=== PATIENT | female | born 2000 | race Caucasian/White ===

== ENCOUNTER 2024-08-02 18:01 | Emergency (ER) | payer BC, MEDICAID, SELFPAY ==
--- NOTE | ~2024-08-02 | XR_ITS ---
CHEST RADIOGRAPH, PA AND LATERAL CLINICAL HISTORY: influenza a, persistent cough . COMPARISON: None available TECHNIQUE: PA and lateral views of the chest. FINDINGS The cardiomediastinal silhouette is unremarkable. The lungs are clear. Visualized osseous structures and soft tissues are unremarkable. IMPRESSION: No focal infiltrate or effusion. Reviewed, dictated and finalized at location A. NG SECRETARY
[2024-08-02 18:10] VITALS: BP 146/81; PULSE 75; RESP 16; TEMP 36.5; O2SAT 100
--- NOTE | 2024-08-02 18:45 | ED_ITS ---
HPI - URI/Sore Throat General Chief Complaint: Upper Respiratory Infection <PEPE Andrade Last Filed: 08/02/24 19:12> Stated Complaint: flu symptoms <PEPE Andrade Last Filed: 08/02/24 19:12> Time Seen by Provider: 08/02/24 18:45 <PEPE Andrade Last Filed: 08/02/24 19:12> Focused HPI: Patient is a 24-year-old female who presents the ED with report of a cough. Patient reports she tested positive for Influenza A last . Has been taking eldeberry, honey, mucinex, Tylenol, Ibuprofen at home w/o improvement. Reports very occasional SOB, denies TEJEDA. Reports ozzy rib pain with coughing. Denies anterior CP at rest. Has had fevers, but denies any fever today. GENERAL: Mildly ill-appearing, well-nourished, and in no acute distress. HEAD: Normocephalic, atraumatic. CHEST: No respiratory distress. Coarse lung sounds ozzy in bases with occ exp wheezing. Frequent coughing on exam. HEART: Regular rate and rhythm.? NEURO: ?Alert and oriented x3. Patient screened in triage and initial orders placed.? ?Additional care and disposition to be based upon?diagnostic testing and treatment. <PEPE Andrade Last Filed: 08/02/24 19:12> Source: patient <PEPE Andrade Last Filed: 08/02/24 19:12> Mode of arrival: ambulatory <PEPE Andrade Last Filed: 08/02/24 19:12> Limitations: no limitations <PEPE Andrade Last Filed: 08/02/24 19:12> Related Data Allergies/Adverse Reactions: Allergies Allergy/AdvReac Type Severity Reaction Status Date / Time ampicillin Allergy Intermediate Hives Verified 08/02/24 20:56 Penicillins Allergy Intermediate Hives Verified 08/02/24 20:57 Sulfa (Sulfonamide AdvReac Swelling Verified 08/02/24 20:57 Antibiotics) <PEPE Andrade Filed: 08/02/24 19:12> Review of Systems Review of Systems: All systems reviewed & are unremarkable except as noted in HPI and below <Elsie LRachelle Del Cid APRN - Last Filed: 08/02/24 22:27> Exam Narrative: GENERAL: Well appearing, well-nourished, non-toxic, in no acute distress. HEAD: Normocephalic, atraumatic. NECK: Supple. No adenopathy, no masses. RESPIRATORY: Airway patent, respirations nonlabored. L lower lobe coarse and crackles, no rales, rhonchi, wheezing. CARDIOVASCULAR: Regular rate and rhythm without murmurs, rubs, or gallops. Per ipheral pulses 2+ and equal bilaterally. ABDOMINAL: Soft, nontender, nondistended, no hepatosplenomegaly. Normoactive BS. MUSCULOSKELETAL: Moves all extremities. Strength/ROM intact without gross def ormities. SKIN: Warm, dry, normal color. No rashes. NEURO: A&O X3. Speech clear. Cranial nerves II-XII grossly intact. Steady gait. No ataxic movements. PSYCHIATRIC: Appropriate mood and affect. Normal interaction. <Elsie Cline Maria Eugenia, ERIC - Last Filed: 08/02/24 22:27> Course Vital Signs Vital signs: Vital Signs Temperature 36.5 C 08/02/24 18:10 Pulse Rate 75 08/02/24 18:10 Respiratory Rate 16 08/02/24 18:10 Blood Pressure 146/81 H 08/02/24 18:10 Pulse Oximetry 100 08/02/24 18:10 Oxygen Delivery Room Air 08/02/24 18:10 Temperature 36.5 C 08/02/24 18:10 Pulse Rate 84 08/02/24 21:57 Respiratory Rate 16 08/02/24 21:57 Blood Pressure 144/83 H 08/02/24 20:12 Pulse Oximetry 100 08/02/24 20:12 Oxygen Delivery Room Air 08/02/24 18:10 <Jodi Armenta PA-C - Last Filed: 08/02/24 19:12> Vital Signs Temperature 36.5 C 08/02/24 18:10 Pulse Rate 75 08/02/24 18:10 Respiratory Rate 16 08/02/24 18:10 Blood Pressure 146/81 H 08/02/24 18:10 Pulse Oximetry 100 08/02/24 18:10 Oxygen Delivery Room Air 08/02/24 18:10 Temperature 36.5 C 08/02/24 18:10 Pulse Rate 84 08/02/24 21:57 Respiratory Rate 16 08/02/24 21:57 Blood Pressure 144/83 H 08/02/24 20:12 Pulse Oximetry 100 08/02/24 20:12 Oxygen Delivery Room Air 08/02/24 18:10 <Elsie Del Cid, ERIC - Last Filed: 08/02/24 22:27> MDM - URI/Sore Throat MDM Narrative Medical decision making narrative: MSE by ANIRUDH in triage. <Jodi Armenta PA-C - Last Filed: 08/02/24 19:12> MSE by ANIRUDH in triage. Patient is a 24-year-old female who presents the ED with report of a cough. Patient reports she tested positive for Influenza A last . Has been taking eldeberry, honey, mucinex, Tylenol, Ibuprofen at home w/o improvement. Reports very occasional SOB, denies TEJEDA. Reports ozzy rib pain with coughing. Denies anterior CP at rest. Has had fevers, but denies any fever today. Labs Ordered: None necessary Imaging Ordered: Chest x-ray Medications Ordered: Prednisone, Toradol, DuoNeb Results: Patient's chest x-ray indicates The cardiomediastinal silhouette is unremarkable. The lungs are clear. Visualized osseous structures and soft tissues are unremarkable. Diagnosis: Upper respiratory infection, influenza A, community-acquired pneumonia Patient Education/Shared MDM: Results shared with patient. She endorses improvement following medication administration. Patient strongly advised to maintain hydration status upon discharge and follow-up with her PCP. She will be discharged home with prescription for Tessalon Perles and Prednisone. After discussion between [employer] and pt, it was decided pt would be treated for atypical pneumonia d/t her coarse lung sounds. Strict return precautions provided. Patient verbalized understanding is in agreement with plan. Vital signs stable at time of discharge. All questions answered. <Elsie Del Cid APRN - Last Filed: 08/02/24 22:27> Differential Diagnosis Differential diagnosis: Likely upper respiratory infection, viral infection, bronchitis and influenza <Elsie Del Cid APRN - Last Filed: 08/02/24 22:27> Imaging Data Attestation: I personally reviewed and interpreted this imaging study as follows: <Elsie Del Cid APRN - Last Filed: 08/02/24 22:27> Radiologist's impression: Impressions Chest X-Ray 08/02/24 19:03 IMPRESSION: No focal infiltrate or effusion. <Elsie Del Cid APRN - Last Filed: 08/02/24 22:27> Discharge Plan Discharge Clinical Impression: Upper respiratory infection, Community acquired pneumonia <Jodi Armenta PA-C - Last Filed: 08/02/24 19:12> Patient Disposition: Home, Self-Care <PEPE Andrade Last Filed: 08/02/24 19:12> Condition: Stable <PEPE Andrade Last Filed: 08/02/24 19:12> Instructions: Antibiotic Form, Influenza (ED), Community Acquired Pneumonia (ED) <PEPE Andrade Last Filed: 08/02/24 19:12> Additional Instructions: Please return to the ER with an worsening symptoms. Follow-up with primary care provider in the next 2-3 days. Take all medications as prescribed. Complete your full dose of antibiotics. <PEPE Andrade Last Filed: 08/02/24 19:12> Patient Language: [place] Islander <PEPE Andrade Last Filed: 08/02/24 19:12> Prescriptions: New methylprednisolone [Medrol (Abdiaziz)] 4 mg tablets,dose pack See Rx Instructions .ROUTE .COMPLEX Qty: 21 0RF Rx Instructions: for 6 days methylprednisolone [Medrol (Abdiaziz)] 4 mg tablets,dose pack See Rx Instructions .ROUTE .COMPLEX Qty: 21 0RF Rx Instructions: for 6 days benzonatate 100 mg capsule 100 mg PO TID Qty: 21 0RF albuterol sulfate [Ventolin HFA] 90 mcg/actuation HFA aerosol inhaler 1 puff inhalation QID PRN (Reason: shortness of breath or wheezing) Qty: 8.5 0RF azithromycin 250 mg tablet See Rx Instructions .ROUTE .COMPLEX Qty: 6 0RF Rx Instructions: For 250 mg dose pack: take 500 mg today (day 1), then 250 mg for 4 days (days 2-5) <Jodi Armenta PA-C - Last Filed: 08/02/24 19:12> Follow-up/Referrals: PHYSICIAN NOT ON STAFF,NONSTAFF [Non-Staff] - <Jodi Armenta PA-C - Last Filed: 08/02/24 19:12> Time of Disposition: 22:27 <Jodi Armenta PA-C - Last Filed: 08/02/24 19:12> 22:27 <Elsie Del Cid APRN - Last Filed: 08/02/24 22:27>
[2024-08-02 20:12] VITALS: BP 144/83; PULSE 73; RESP 15; O2SAT 100
--- OUTSIDE RECORDS SUMMARY | 2024-08-02 21:01 | XMS_ITS | Encounter Summary ---
Author Organization [facility] Address [facility]ly [facility] [place] [address] Care Team Providers Care Business Information Manager Name Role Phone None, Provider Primary Care Provider Nanette Cedeño MD Primary Care Provider [phone] Heather Willams DO Primary Care Provider [phone] Lane Lazcano CNM Unavailable [phone] Matty Pugh NP Primary Care Provider [phone] Reason for Visit * Reason Onset Date Comments Post-hospital Follow-up 05/09/2019 Encounter Details Date Type Department Care Team (Late st Contact Info) Description 05/09/2019 Hospital Follow-up Call [facility] [place] [address] Carley Boggs RN Post-hospital Follow-up Social History Tobacco Use Types Packs/Day Years Used Date Smoking Tobacco: Never Smokeless Tobacco: Never Alcohol Use Standard Drinks/Week Comments No 0 (1 standard drink = 0.6 oz pur e alcohol) Humiliation, Afraid, Rape, and Kick questionnair e Answer Date Recorded Fear of Current or Ex-Partner No Emotionally Abused No 02/25/2019 Physically Abused No 02/25/2019 Sexually Abused No 02/25/2019 Social Connection and Isolat ion Panel [NHANES] Answer Date Recorded Frequency of Communication w ith Friends and Family More than three times a week 02/25/2019 Frequency of Social Gatherin gs with Friends and Family Three times a week 02/25/2019 Attends Hoahaoism Services Never 02/25 Active Member of Clubs or Organizations Yes 02/25/2019 Attends Club or Organization Meetings More than 4 times per year 02/25/2019 Marital Status 02/25/2019 AUDIT-C Answer Date Recorded Frequency of Alcohol Consumption Never 09/15/2018 Average Number of Drinks Not on file 019 Frequency of Binge Drinking Not on file 08/21 Overall Financial Resource Strain (CARDIA) Answe r Date Recorded Difficulty of Paying Living Expenses Not hard at all 02/25/2019 [facility] - Occupational Stress Questionnaire Answer Date Recorded Feeling of Stress Not at all 02/25/2019 Exercise Vital Sign Answer Date Recorde d Days of Exercise per Week 7 days 2018 Minutes of Exercise per Session 150+ min 02/25/2019 Hunger Vital Sign Answer Date Recorded Worried About Running Out of Food in the Last Ye ar Never true 02/25/2019 Ran Out of Food in the Last Year Never true 02/25/2019 PRAPARE - Transportation Answer Date Re corded Lack of Transportation (Medical) No 02/25/2019 Lack of Transportation (Non-Medical) No 02/25/2019 Education Answer Date Recorded What is the highest level of school you have completed or the highest degree you have received? High school graduate 02/25/2019 Comments No Sex and Gender Information Value Date Recorded Sex Assigned at Not on file Legal Sex Female 7:46 PM CDT Gender Identity Not on file Sexual Orientation Not on file Occupation Industry Job Start Date Job End Date none Not on file Not on file Not on file documented as of this encounter Functional Status * RETIRED Are you deaf or do you have serious difficulty hearing Answer Date of Assessment Author Status No 05/04/2019 12:27 PM CLIENT SERVICES ASSOCIATE Acti ve * RETIRED Are you blind or do you have serious difficulty seeing, even when wearing glasses? Answer Date of Assessment Author Status No 05/04/2019 12:27 PM CLIENT SERVICES ASSOCIATE Acti ve * Do you have serious difficulty walking or climbing stairs? Answer Date of Assessment Author Status No 05/04/2019 12:27 PM Erin Diana RN Active * Do you have difficulty dressing or bathing? Answer Date of Assessment Author Status No 05/04/2019 12:27 PM Erin Diana RN Active * Because of a physical, mental, or emotional condition, do you have difficulty doing errands alone such as visiting a doctor's office or shopping? Answer Date of Assessment Author Status No 05/04/2019 12:27 PM Erin Diana RN Active documented as of this encounter Mental Status * Because of a physical, mental, or emotional condition, do you have serious difficulty concentrating, remembering, or making decisions? Answer Entry Date Author Status No 05/04/2019 12:27 PM Erin Diana RN Active documented in this encounter Plan of Treatment Not on file documented as of this encounter Visit Diagnoses Not on filedocumented in this encounter Additional Health Concerns Infection Onset Date Last Indicated Resolved Time COVID-19 Rule Out 06/21/2021 06/21/2021 06/21/2021 10:20 PM CLIENT SERVICES ASSOCIATE COVID-19 Rule Out 02/14/2024 02/14/2024 02/14/2024 6:47 PM CDT documented as of this encounter Care Teams Business Information Manager Relationship Specialty Start Date End Date None, Provider, PCP - General 09/15/18 11/07/19 Nanette Sharma MD [address] [address] PCP - General FAMILY PRACTICE 11/08/19 12/27/19 Heather Willams DO [address] [phone] PCP - General FAMILY PRACTICE 12/28/19 06/25/23 Matty Pugh, ZAHIRA [address] [place] [phone] PCP - General FAMILY PRACTICE 06/26/23 Lane Lazcano CNM 3 [facility] [address] [place] [phone] ADVANCED PRACTICE WATER TAXI OPERATOR 05/01/21 documented as of this encounter
--- OUTSIDE RECORDS SUMMARY | 2024-08-02 21:01 | XMS_ITS | Clinical Summary ---
Author Organization [facility] Address [address] [place] [address] Care Team Providers Care Theatre Director Name Role Phone No, Physician Primary Care Provider [phone] Melina Forrester MD Unavailable [phone] Allergies Active Allergy Reactions Criticality Noted Date Comments Penicillin Anaphylaxis High 04/06/2024 Sulfa (Sulfonamide Antibiotics) Hives Medium 03/22 Medications famotidine (PEPCID) 20 mg tablet Take 1 tablet (20 mg total) by mouth 2 (two) times a day as needed for heartburn Active [id number] 25 mg iron-1 mg -400 mg combo pack Take 1 tablet by mouth daily Active Active Problems Problem Noted Date Diagnosed Date Normal labor 04/06/2024 Social History Tobacco Use Types Packs/Day Years Used Date Smoking Tobacco: Never Passive Smoke Exposure: Never Smokeless Tobacco: Never Tobacco Cessation:Counseling Given: No [place] Depression Scale Answer Date Recorded [place] Depression Scale Total 8 04/08/2024 The thought of harming myself has occurred to me . Never 04/08/2024 Personal Safety Answer Date Recorded Have you ever been in or are you currently in a harmful physical or emotional relationship or is someone making you feel afraid or unsafe? 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 Gender Identity Not on file Sexual Orientation Not on file Obstetrics History Para Term AB IAB SAB Ectopic Multiple Livin g Live Births 4 3 3 1 0 3 3 Date Outcome GA Total Labor Labor/2nd/3rd Weight Sex Type Anes PTL Niki A1 A5 Name Clin AB 2018 Term Vagina l Livin g 2021 Term 38w 0d Vagina l Livin g 2023 Term 38w 6d 4h 20m 3h 57m/0h 18m/0h 05m 2.95 kg (6 lb 8.1 oz) M Vagina l Epidur al Y Livin g 8 9 Eliecer Ray Tae Shine, Nataliia Mccormack MD Complications:None Delivery Location:[facility] Main C ampus ([facility]) Last Filed Vital Signs Vital Sign Reading Time Taken Comments Blood Pressure 116/58 04/08/2024 6:09 AM CDT Pulse 60 04/08/2024 6:09 AM CDT Temperature 36.7 C (98.1 F) 04/08/2024 6:09 AM CDT Respiratory Rate 16 04/08/2024 6:09 AM CDT Oxygen Saturation 98% 04/08/2024 6:09 AM CDT Inhaled Oxygen Concentration - - Weight 67.1 kg (148 lb) 04/07/2024 9:50 PM CDT Height 157.5 cm (5' 2 ) 04/07/2024 9:50 PM CDT Body Mass Index 27.07 04/07/2024 9:50 PM CDT Plan of Treatment Health Maintenance Due Date Last Done Comments Cervical Cancer Screening 1998 Hepatitis C Screening 1998 Varicella Vaccines (2 of 2 - 2-dose childhood series) 2002 03/02/2002 HPV Vaccines (1 - 3-dose series) 2013 Regular Well Visit/Exam 18-64 2016 Influenza Vaccine (#1) 2024 05/06/2019 Depression Screening 04/08/2025 04/08/2024 DTaP/Tdap/Td Vaccine (8 - Td or Tdap) 05/07/2031 05/07/2021, 09/24/2020, 05/05/2019, Additional history exists Pneumococcal vaccine <65 Aged Out No longer eligible based on patient's age to complete this topic Insurance [facility]S [facility] Address: [address] [place] [address] [employer] [facility] O[facility] IDPA Advance Directives For more information, please contact: [phone] * Full Code (Latest Code Status on File) Date Activated Date Inactivated Comments 04/07/2024 5:32 AM 04/08/2024 3:57 PM * Full Code Date Activated Date Inactivated Comments 04/06/2024 7:03 PM 04/07/2024 5:32 AM Care Teams Theatre Director Relationship Specialty Start Date End Date No, Physician PCP - General 08/20/20 Melina Forrester MD [address] [place] [address] Consulting Physician Obstetrics and Gynecology 04/08/24
--- OUTSIDE RECORDS SUMMARY | 2024-08-02 21:01 | XMS_ITS | Referral Summary ---
Author Organization [facility] Address [address] [place] [address] Care Team Providers Care Commissions Specialist Name Role Phone No, Physician Primary Care Provider [phone] Melina Forrester MD Unavailable [phone] Allergies Active Allergy Reactions Criticality Noted Date Comments Penicillin Anaphylaxis High 04/06/2024 Sulfa (Sulfonamide Antibiotics) Hives Medium 03/22 Medications famotidine (PEPCID) 20 mg tablet Take 1 tablet (20 mg total) by mouth 2 (two) times a day as needed for heartburn Active [id number] 25 mg iron-1 mg -400 mg combo pack Take 1 tablet by mouth daily Active Active Problems Problem Noted Date Diagnosed Date Normal labor 04/06/2024 Social History Tobacco Use Types Packs/Day Years Used Date Smoking Tobacco: Never Passive Smoke Exposure: Never Smokeless Tobacco: Never Tobacco Cessation:Counseling Given: No [place] Depression Scale Answer Date Recorded [place] Depression Scale Total 8 04/08/2024 The thought [...] on file Legal Sex Female 8:52 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 CLAIMS [employer] OOS Member Subscriber Plan / Payer (Ef fective 2023-Present) Name:Elly Clarke Relation to Subscriber:Spouse Name:Todd Clarke Date of :1995 Address: [place] [address] Payer ID:[id number] (NAIC) Type:[facility] Address: [address] [place] [id number] IDPA Advance Directives For more information, please contact: [phone] * Full Code (Latest Code Status on File) Date Activated Date Inactivated Comments 04/07/2024 5:32 AM 04/08/2024 3:57 PM * Full Code Date Activated Date Inactivated Comments 04/06/2024 7:03 PM 04/07/2024 5:32 AM Care Teams Commissions Specialist Relationship Specialty Start Date End Date No, Physician PCP - General 08/20/20 Melina Forrester MD [address] [place] [address] Consulting Physician Obstetrics and Gynecology 04/08/24
--- OUTSIDE RECORDS SUMMARY | 2024-08-02 21:01 | XMS_ITS | Clinical Summary ---
Author Organization [facility] Address [address] [place] [address] Care Team Providers Care Cte Teacher Name Role Phone Lane Lazcano CNM Unavailable [phone] Matty Pugh IMAGE EDITOR Primary Care Provider + [phone] Allergies Active Allergy Reactions Criticality Noted Date Comments Ampicillin Chest pressure 09/15/2018 Penicillin V Chest pressure 09/15/2018 Penicillins Unknown 01/19/2019 Sertraline Palpitations Medium 07/18/2022 Sulfa Antibiotics Hives 09/15/2018 Medications vitamin D2, ergocalciferol, (DRISDOL) 1.25 mg capsule Take 1 capsule (1.25 mg total) by mouth every 7 days. 07/01/19 24 Active vitamin with iron ( PLUS) 27-1 MG Tab Take 1 tablet by mouth daily. Active hydrOXYzine (VISTARIL) 25 MG capsule Take 1-2 capsules (25-50 mg total) by mouth 4 (four) times daily as needed for Itching or Anxiety (insomnia, nausea or pain). May substitute tabs and or any form of hydroxyzine 30 capsule 2 03/17/20 24 Active ondansetron (ZOFRAN-ODT) 8 MG disintegrating tablet Take 1 tablet (8 mg total) by mouth every 8 (eight) hours as needed for Nausea. 20 tablet 2 03/17/20 24 Active sucralfate (CARAFATE) 1 G tablet Take 1 tablet (1 g total) by mouth 4 (four) times daily. Please take 30-60 minutes before meal and bedtime. After 5 days may take this medicine 2-4 times a day as needed 60 tablet 2 03/17/20 24 Active famotidine (PEPCID) 20 MG tablet Take 2 tablets (40 mg total) by mouth 2 (two) times daily. 60 tablet 1 03/17/20 24 Active Active Problems Problem Noted Date Diagnosed Date Labor, prolonged latent phase ([facility]) 03/30/20 24 Uterine contractions during ([facility]) 03/16/2024 Uterine contractions ([facility]) 03/16/2024 Threatened labor ([facility]) 02/21/2024 32 weeks gestation of ([facility]) 2023 Normal in third trimester ([facility]) ([facility]) 04/07/2019 Dizziness Palpitations Murmur Resolved Problems Problem Noted Date Diagnosed Date Resolved Date Delayed delivery after SROM (spontaneous rupture of membranes) ([facility]) 03/29/2024 03/31/20 24 uterine contractions in third trimester, antepartum ([facility]) 04/01/2019 05/04/20 19 uterine contractions , antepartum, third trimester ([facility]) 03/24/2019 05/04/2019 uterine contractions , antepartum, third trimester ([facility]) 03/07/2019 05/04/2019 Immunizations Name Administration Dates Next Due Afluria 36 MONTHS+ (Prefilled Syringe IIV4) 04/22 MMR (MMRII) 07/05/2021,05/06/2019 Tdap (Boostrix) 05/05/2019 Family History Medical History Relation Comments Asthma Brother 3 Hypertension Father CHF Maternal Grandfather [place] Maternal Grandfather Stent Cardiac Maternal Grandfather Stroke Maternal Grandfather Cancer Mother CHF Paternal Grandfather Heart Attack Paternal Grandfather hypothyroidism Sister Relation Status Comments Brother 1 Alive Brother 2 Alive Brother 3 Alive Father Alive Maternal Grandfather Mother Alive Paternal Grandfather Alive Sister Alive Social History Tobacco Use Types Packs/Day Years Used Date Smoking Tobacco: Never Smokeless Tobacco: Never Alcohol Use Standard Drinks/Week Comments No 0 (1 standard drink = 0.6 oz pur e alcohol) Humiliation, Afraid, Rape, and Kick questionnair e Answer Date Recorded Within the last year, have y ou been afraid of your partner or ex-partner? No 06/27/2021 Within the last year, have y ou been humiliated or emotionally abused in other ways by your partner or ex-partner? No Within the last year, have y ou been kicked, hit, slapped, or otherwise physically hurt by your partner or ex-partner? No 06/27/2021 Within the last year, have y ou been raped or forced to have any kind of sexual activity by your partner or ex-partner? No 06/27/2021 Social Connection and Isolat ion Panel [NHANES] Answer Date Recorded Frequency of Communication w ith Friends and Family More than three times a week 02/25/2019 Frequency of Social Gatherin gs with Friends and Family Three times a week 02/25/2019 Attends [employer] Services Never 02/25 Active Member of Clubs [...] Living Expenses Not hard at all 02/25/2019 [facility] - Occupational [...] 02/25/2019 Lack of Transportation (Non-Medical) No 02/25/2019 Depression Answer Date Recor ded Last EPDS Total Score 9 07/05/2021 Last EPDS Self Harm Result 07/05 Education Answer Date Recorded What is the [...] file Not on file Not on file Last Filed Vital Signs Vital Sign Reading Time Taken Comments Blood Pressure 109/49 03/31/2024 8:39 AM CDT Pulse 70 03/31/2024 8:39 AM CDT Temperature 36.8 C (98.2 F) 03/31/2024 8:42 AM CDT Respiratory Rate 16 03/31/2024 8:42 AM CDT Oxygen Saturation 100% 03/30/2024 1:00 PM CDT Inhaled Oxygen Concentration - - Weight 63.5 kg (140 lb) 02/22/2024 3:00 PM CDT Height 157.5 cm (5' 2 ) 02/22/2024 3:00 PM CDT Body Mass Index 25.61 02/22/2024 3:00 PM CDT Plan of Treatment Health Maintenance Due Date Last Done Comments Cervical Cancer Screening Pap Smear (Age 21 to 29) Every 3 Years 1998 Cervical Cancer Screening 1998 Annual Physical 2001 HPV Vaccines (1 - 3-dose series) 2013 COVID-19 Vaccine ( season) 2024 Influenza Adult (#1) 2024 05/06/2019 DTaP, Tdap and Td Vaccines (7 - Td or Tdap) 05/07/2031 05/07/2021, 05/05/2019, 12/26/1999, Additional history exists Hepatitis B Vaccines Completed 05/28/1999, 1998, 1998 Meningococcal Vaccine Aged Out 01/14/2011 No ruel sarah eligible based on patient's age to complete this topic Hepatitis C Completed 04/30/2021 Meningococcal B Vaccine Aged Out No l onger eligible based on patient's age to complete this topic Pneumococcal Vaccine: Pediatrics (0 to 5 Years) and At-Risk Patients (6 to 64 Years) Aged Out No longer eligible based on patient's age to complete this topic RSV Immunizations Under 20 Months Aged Out No longer eligible based on patient's age to complete this topic Procedures Procedure Name Priority Date/Time Associated Diagnosis Comments HEPATITIS C ANTIBODY Routine 04/30/2021 from Last 3 Months or Most Recently Relevant to Health Maintenance Results * HEPATITIS C ANTIBODY (04/30/2021) HEPATITIS C AB Non-Reacti ve us Doc [facility] Final Result from Last 3 Months or Most Recently Relevant to Health Maintenance Insurance [place], [place] [address] [place] [address] MEDICAID Advance Directives * Full Code (Latest Code Status on File) Date Activated Date Inactivated Comments 03/30/2024 10:27 AM 03/31/2024 1:45 PM * Full Code Date Activated Date Inactivated Comments 03/30/2024 12:05 AM 03/30/2024 10:27 AM * Full Code Date Activated Date Inactivated Comments 07/04/2021 3:01 PM 07/06/2021 3:37 AM * Full Code Date Activated Date Inactivated Comments 05/04/2019 1:59 PM 05/06/2019 6:13 PM * Full Code Date Activated Date Inactivated Comments 04/26/2019 3:19 PM 04/26/2019 5:20 PM Care Teams Cte Teacher Relationship Specialty Start Date End Date Matty Pugh NP [address] [phone] PCP - General FAMILY PRACTICE 06/26/23 Lane Lazcano CNM ADVANCED PRACTICE COIL WINDER STRAP 05/01/21
--- OUTSIDE RECORDS SUMMARY | 2024-08-02 21:01 | XMS_ITS | Encounter Summary ---
Author Organization [facility] Address [facility] [place] [address] Care Team Providers Care Hydrotechnical Specialist Name Role Phone Heather Willams DO Primary Care Provider + [phone] Lane Lazcano CNM Unavailable [phone] Matty Pugh ACID MIXER Primary Care Provider + [phone] Encounter Details Date Type Department Care Team (Late st Contact Info) Description 07/23/2021 Hospital Follow-up Call [facility] [place] [address] Erin Gonzalez, RN Social History Tobacco Use Types Packs/Day Years [...] Family Three times a week 02/25/2019 Attends [employer] Services Never 02/25 Active Member of Clubs [...] Living Expenses Not hard at all 02/25/2019 [facility] - Occupational Stress [...] file Not on file Not on file COVID-19 Exposure Response Date Recorded In the last month, have you been in contact with someone who was confirmed or suspected to have Coronavirus / COVID-19? No / Unsure 07/04/2021 2:17 PM BUCKLE INSPECTOR documented as of this encounter Functional Status * RETIRED Are you deaf or do you have serious difficulty hearing Answer Date of Assessment Author Status No 07/04/2021 2:49 PM BUCKLE INSPECTOR Activ e * RETIRED Are you blind or do you have serious difficulty seeing, even when wearing glasses? Answer Date of Assessment Author Status No 07/04/2021 2:49 PM BUCKLE INSPECTOR Activ e * Do you have serious difficulty walking or climbing stairs? Answer Date of Assessment Author Status No 07/04/2021 2:49 PM Marylin Santos RN Active * Do you have difficulty dressing or bathing? Answer Date of Assessment Author Status No 07/04/2021 2:49 PM Marylin Santos RN Active * Because of a physical, mental, or emotional condition, do you have difficulty doing errands alone such as visiting a doctor's office or shopping? Answer Date of Assessment Author Status No 07/04/2021 2:49 PM Marylin Santos RN Active documented as of this encounter Mental Status * Because of a physical, mental, or emotional condition, do you have serious difficulty concentrating, remembering, or making decisions? Answer Entry Date Author Status No 07/04/2021 2:49 PM Marylin Santos RN Active documented in this encounter Plan of Treatment Not on file documented as of this encounter Visit Diagnoses Not on filedocumented in this encounter Additional Health Concerns Infection Onset Date Last Indicated Resolved Time COVID-19 Rule Out 02/14/2024 02/14/2024 02/14/2024 6:47 PM CDT documented as of this encounter Care Teams Hydrotechnical Specialist Relationship Specialty Start Date End Date Heather Willams DO [address] [facility] [address] [place] [phone] PCP - General FAMILY PRACTICE 12/28/19 06/25/23 Matty Pugh NP [address] [place] [phone] PCP - General FAMILY PRACTICE 06/26/23 Lane Lazcano CNM 3 [facility] [address] [place] [phone] ADVANCED PRACTICE MANAGER DRILLING 05/01/21 documented as of this encounter
--- OUTSIDE RECORDS SUMMARY | 2024-08-02 21:02 | XMS_ITS | Referral Summary ---
Author Organization [facility] Address [address] [place] [address] Care Team Providers Care Camera Tuning Engineer Name Role Phone Matty Pugh [employer] MANAGER-REACTOR KETTLE OPERATOR Unavailable [phone] Calvin Haro MD Primary Care Provider [phone] Matty Pugh [employer] MANAGER-REACTOR KETTLE OPERATOR Unavailable [phone] Source Comments [facility],non-owned Affiliates and Associated Physician Practices is amultiple site organization consisting of ambulatory clinics and hospital sitesin [place], [place], [place] and [place]. This disclosure is being madepursuant to the Care Everywhere program and may not contain all information available regarding this patient. Last updated 18.[facility] Allergies Active Allergy Reactions Criticality Noted Date Comments Ampicillin Urticaria Medium 11/10/2023 Penicillins Unknown,Urticaria,Ra sh,Palpitations,Sh ortness of Breath High 01/19/2019 Sertraline Palpitations Medium 07/18/2022 Sulfa Drugs Unknown 01/19/2019 Medications * Be aware that medications may not be up to date on this document. Alwaysverify current medications with the patient. Medication Sig Dispensed Refills Start Date End Date Status fluticasone propionate (Flonase) 50 MCG/ACT nasal sprayIndications:Chron ic ear pain, left,Migraine without aura and without status migrainosus, not intractable [place] 2 (two) sprays into each nostril once daily 16 g 2 06/29/2023 Active Vit-Fe Fumarate-FA ( VITAMIN PO) Take by mouth once daily Active hydrocortisone, rectal, (Anusol-HC) 2.5 % creamIndications:Hemor rhoids, unspecified hemorrhoid type Insert into the rectum at bedtime 28 g 11/10/2023 Active sodium chloride ([place]; Baby [place]) 0.65 % nasal sprayIndications:Seaso nal allergic rhinitis due to pollen [place] 1 (one) spray into each nostril as needed for Dry Nose 30 mL 1 11/10/2023 Active Active Problems Patient Care Coordination No te Formatting of this note migh t be different from the original. [facility] Problem Noted Date Diagnosed Date Urinary tract infectious disease 11/10/2023 Streptococcal sore throat 08/10/2023 Anxiety 06/29/2023 06/29/2023 Overview (06/29/2023): History and was off meds, desires meds again, will make apt with therapist History of pre-term labor 06/29/20232023 Overview (06/29/2023): (was on Mag and Procardia) delivered at term Not immune to rubella 06/29/2023 06/29/2023 Overview (06/29/2023): need MMR PP Abnormal uterine and vaginal bleeding, unspecifi ed 05/22/2022 Murmur 01/23/2022 Palpitations 01/23/2022 Dizziness 01/23/2022 28 weeks gestation of 04/29/2021 10/13/2022 Low-lying placenta 04/29/2021 10/13/2022 Normal in multigravida 04/29/2021 10/13/2022 26 weeks gestation of 04/15/2021 06/29/2023 Overview (06/29/2023): 26 weeks gestation of ; Progress: Stable Added By: Janna Mason Add to Current Problems: NO ProblemStatus: Resolve 18 weeks gestation of 02/13/2021 06/29/2023 Overview (06/29/2023): 18 weeks gestation of ; Severity: Moderate Progress: Stable Added By: Willow Larry Add to Current Problems: YES ProblemStatus: Current 16 weeks gestation of 01/25/2021 06/29/2023 Overview (06/29/2023): 16 weeks gestation of ; Progress: Stable Added By: Betsy Hickman Add to Current Problems: NO ProblemStatus: Resolve 12 weeks gestation of 12/28/2020 06/29/2023 Overview (06/29/2023): 12 weeks gestation of ; Progress: Stable Added By: Gurpreet Rowell Add to Current Problems: NO ProblemStatus: Resolve 8 weeks gestation of 11/28/2020 0 06/29/2023 Overview (06/29/2023): 8 weeks gestation of ; Progress: Stable Added By: Bailey Brown Add to Current Problems: NO ProblemStatus: Resolve Threatened miscarriage 11/21/2020 Overview (06/29/2023): Threatened ; Severity: Moderate Progress: Stable Added By: Willow Larry Add to Current Problems: YES ProblemStatus: Current Abnormal ultrasound 09/18/2020 Overview (06/29/2023): Encounter for test, result unknown; Progress: Stable Added By: Sabiha Mason Add to Current Problems: NO ProblemStatus: Resolve Dysuria 07/03/2019 06/29/2023 Overview (06/29/2023): Dysuria; Progress: Stable Added By: Kenyatta Bautista Add to Current Problems: NO ProblemStatus: Resolve Transitory mood disturbance 0 06/29/2023 Overview (06/29/2023): mood disturbance; Progress: Stable Added By: Regan Prieto Add to Current Problems: NO ProblemStatus: Resolve depression 06/25/2019 06/29/2023 Overview (06/29/2023): depression; Progress: Stable Added By: Eve Morgan Add to Current Problems: NO ProblemStatus: Resolve Contraceptive use 06/25/2019 06/29/2023 Overview (06/29/2023): Encounter for initial prescription of contraceptive pills; Progress: Stable Added By: Eve Morgan Add to Current Problems: NO ProblemStatus: Resolve 38 weeks gestation of 05/01/2019 06/29/2023 Overview (06/29/2023): 38 weeks gestation of ; Progress: Stable Added By: Regan Prieto Add to Current Problems: NO ProblemStatus: Resolve 37 weeks gestation of 04/24/2019 06/29/2023 Overview (06/29/2023): 37 weeks gestation of ; Progress: Stable Added By: Dianne Rodrigues Add to Current Problems: NO ProblemStatus: Resolve 36 weeks gestation of 04/18/2019 06/29/2023 Overview (06/29/2023): 36 weeks gestation of ; Progress: Stable Added By: Adrienne Land Add to Current Problems: NO ProblemStatus: Resolve Acute vaginitis 03/14/2019 06/29/2023 Overview (06/29/2023): Acute vaginitis; Severity: Moderate Progress: Stable Added By: Willow Larry Add to Current Problems: YES ProblemStatus: Current Uterine size-date discrepancy 03/14/2019 Overview (06/29/2023): Uterine size-date discrepancy, third trimester; Progress: Stable Added By: Mily Arredondo Add to Current Problems: NO ProblemStatus: Resolve Pelvic and perineal pain 02/23/2019 Overview (06/29/2023): Pelvic and perineal pain; Progress: Stable Added By: Kenyatta Bautista Add to Current Problems: NO ProblemStatus: Resolve 24 weeks gestation of 01/26/2019 06/29/2023 Overview (06/29/2023): 24 weeks gestation of ; Progress: Stable Added By: Bambi Harding Add to Current Problems: NO ProblemStatus: Resolve 01/19/2019 screening for malformation using ultra sonics 01/19/2019 Rh negative state in antepar chloé period, unspecified trimester 01/19/2019 20 weeks gestation of 12/29/2018 06/29/2023 Overview (06/29/2023): 20 weeks gestation of ; Severity: Moderate Progress: Stable Added By: Bambi Harding Add to Current Problems: YES ProblemStatus: Current 15 weeks gestation of 11/24/2018 06/29/2023 Overview (06/29/2023): 15 weeks gestation of ; Progress: Stable Added By: Regan Prieto Add to Current Problems: NO ProblemStatus: Resolve 11 weeks gestation of 10/27/2018 06/29/2023 Overview (06/29/2023): 11 weeks gestation of ; Progress: Stable Added By: Gurpreet Rowell Add to Current Problems: NO ProblemStatus: Resolve Fewer than 9 weeks gestation of 201806/29/2023 Overview (06/29/2023): Less than 8 weeks gestation of ; Progress: Stable Added By: Gurpreet Rowell Add to Current Problems: NO ProblemStatus: Resolve Estimated Date of Delivery Comme nts Yes 04/15/2024 Resolved Problems Problem Noted Date Diagnosed Date Resolved Date Acute pharyngitis 11/10/2023 11/24/2023 Acute upper respiratory infection 11/10/2023 11/24/2023 Immunizations Name Administration Dates Next Due DTaP VACCINE IM (6wk-6yrs) 12/26/1999,,1998,09/04 HEP B VACCINE, PED/ADOL 1998 HIB Hep B 05/28/1999,1998 HIB VACCINE 12/26/1999,1998 INFLUENZA VACCINE, QUADR. (F LUZONE; FLULAVAL; FLUARIX; AFLURIA QUADRIVALENT; 6MO+), 0.5 ML (IIV4) 05/06/2019 MENINGOCOCCAL MCV4O 01/14/2011 MMR 07/05/2021,05/06/2019 MMR VACCINE 07/09/1999 POLIO IPV 07/09/1999,1998,1998 TDAP (7yrs+) 05/07/2021,05/05/2019 VARICELLA 03/02/2002 Social History Tobacco Use Types Packs/Day Years Used Date Smoking Tobacco: Never Smokeless Tobacco: Never Tobacco Cessation:Counseling Given: Not Answered Alcohol Use Standard Drinks/Week Comments No 0 (1 standard drink = 0.6 oz pur e alcohol) PHQ-2 Answer Date Recorded Patient Health Questionnaire-2 Score 0 06/29/2023 Estimated Date of Delivery Comme nts Yes 04/15/2024 Sex and Gender Information Value Date Recorded Sex Assigned at Not on file Gender Identity Not on file Sexual Orientation Not on file Last Filed Vital Signs Vital Sign Reading Time Taken Comments Blood Pressure 116/64 11/10/2023 1:04 PM CDT Pulse 83 11/10/2023 1:04 PM CDT Temperature 36.9 C (98.4 F) 11/10/2023 1:04 PM CDT Respiratory Rate 18 02/04/2023 2:59 PM CDT Oxygen Saturation 99% 11/10/2023 1:04 PM CDT Inhaled Oxygen Concentration - - Weight 55.7 kg (122 lb 12.8 oz) 11/10/2023 1:04 PM CDT Height 157.5 cm (5' 2 ) 11/10/2023 1:04 PM CDT Body Mass Index 22.46 11/10/2023 1:04 PM CDT Plan of Treatment Not on file Administered Medications Care Teams Camera Tuning Engineer Relationship Specialty Start Date End Date Calvin Haro MD [address] [phone] PCP - General Family Medicine 11/09/23 Matty Pugh, [employer] MANAGER-REACTOR KETTLE OPERATOR [address] [phone] Nurse Practitioner Family 01/23/22 Matty Pugh, [employer] MANAGER-REACTOR KETTLE OPERATOR [address] [phone] Nurse Practitioner Nurse Practitioner Family 11/09/23
--- OUTSIDE RECORDS SUMMARY | 2024-08-02 21:02 | XMS_ITS | Patient Health Summary ---
Author Organization [facility] Address [address] [place] [address] Care Team Providers Care Ethologist Name Role Phone Matty Pugh COLOR STRAINER-C DEVELOPER Unavailable + Calvin Haro MD Primary Care Provider [phone] Matty Pugh COLOR STRAINER-C DEVELOPER Unavailable + Note from [facility],non-owned Affiliates and Associated Physician Practices is amultiple site organization consisting of ambulatory clinics and hospital sitesin [place], [place], [place] and [place]. This disclosure is being madepursuant to the Care Everywhere program and may not contain all information available regarding this patient. Last updated 18.[facility] Allergies * Ampicillin(Urticaria) -Medium Criticality * Penicillins(Unknown,Urticaria,Rash,Palpitations,Shortness of Breath) -High Criticality * Sertraline(Palpitations) -Medium Criticality * Sulfa Drugs(Unknown) Medications * Be aware that medications may not be up to date on this document. Alwaysverify current medications with the patient. * fluticasone propionate (Flonase) 50 MCG/ACT nasal spray(Started 06/29/2023) [place] 2 (two) sprays into each nostril once daily 2 refills by 06/28/2024 * Vit-Fe Fumarate-FA ( VITAMIN PO) Take by mouth once daily * hydrocortisone, rectal, (Anusol-HC) 2.5 % cream(Started 11/10/2023) Insert into the rectum at bedtime * sodium chloride (Alba; Baby [place]) 0.65 % nasal spray(Started 11/10/2023) [place] 1 (one) spray into each nostril as needed for Dry Nose 1 refill by 11/09/2024 Active Problems Problem Noted Date Diagnosed Date Urinary tract infectious disease 11/10/2023 Streptococcal sore throat 08/10/2023 Anxiety 06/29/2023 06/29/2023 History of pre-term labor 06/29/20232023 Not immune to rubella 06/29/2023 06/29/2023 Abnormal uterine and vaginal bleeding, unspecifi ed 05/22/2022 Murmur 01/23/2022 Palpitations 01/23/2022 Dizziness 01/23/2022 28 weeks gestation of 04/29/2021 10/13/2022 Low-lying placenta 04/29/2021 10/13/2022 Normal in multigravida 04/29/2021 10/13/2022 26 weeks gestation of 04/15/2021 06/29/2023 18 weeks gestation of 02/13/2021 06/29/2023 16 weeks gestation of 01/25/2021 06/29/2023 12 weeks gestation of 12/28/2020 06/29/2023 8 weeks gestation of 11/28/2020 0 06/29/2023 Threatened miscarriage 11/21/2020 Abnormal ultrasound 09/18/2020 Dysuria 07/03/2019 06/29/2023 Transitory mood disturbance 0 06/29/2023 depression 06/25/2019 06/29/2023 Contraceptive use 06/25/2019 06/29/2023 38 weeks gestation of 05/01/2019 06/29/2023 37 weeks gestation of 04/24/2019 06/29/2023 36 weeks gestation of 04/18/2019 06/29/2023 Acute vaginitis 03/14/2019 06/29/2023 Uterine size-date discrepancy 03/14/2019 Pelvic and perineal pain 02/23/2019 024 24 weeks gestation of 01/26/2019 06/29/2023 01/19/2019 screening for malformation using ultra sonics 01/19/2019 Rh negative state in antepar chloé period, unspecified trimester 01/19/2019 20 weeks gestation of 12/29/2018 06/29/2023 15 weeks gestation of 11/24/2018 06/29/2023 11 weeks gestation of 10/27/2018 06/29/2023 Fewer than 9 weeks gestation of 201806/29/2023 Resolved Problems Problem Noted Date Diagnosed Date Resolved Date Acute pharyngitis 11/10/2023 11/24/2023 Acute upper respiratory infection 11/10/2023 11/24/2023 Immunizations * DTaP VACCINE IM (6wk-6yrs)(Given 12/26/1999, 05/28/1999, 1998, 1998) * HEP B VACCINE, PED/ADOL(Given 1998) * HIB Hep B(Given 05/28/1999, 1998) * HIB VACCINE(Given 12/26/1999, 1998) * INFLUENZA VACCINE, QUADR. (FLUZONE; FLULAVAL; FLUARIX; AFLURIA QUADRIVALENT; 6MO+), 0.5 ML (IIV4)(Given 05/06/2019) * MENINGOCOCCAL MCV4O(Given 01/14/2011) * MMR(Given 07/05/2021, 05/06/2019) * MMR VACCINE(Given 07/09/1999) * POLIO IPV(Given 07/09/1999, 1998, 1998) * TDAP (7yrs+)(Given 05/07/2021, 05/05/2019) * VARICELLA(Given 03/02/2002) Social History Tobacco Use Types Packs/Day Years [...] Mass Index 22.46 11/10/2023 1:04 PM CDT Procedures * VITAMIN D 25-HYDROXY(Performed 11/10/2023) Performed for Fatigue, unspecified type * VITAMIN B12 FOLATE PANEL(Performed 11/10/2023) Performed for Vitamin D deficiency * IRON + TIBC + FERRITIN(Performed 11/10/2023) Performed for Fatigue, unspecified type * SKIN TEST PPD - POINT OF CARE(Performed 08/06/2023) Performed for Screening-pulmonary TB * STREP A SCREEN - POINT OF CARE (AMB)(Performed 08/04/2023) Performed for Strep throat exposure * CULTURE STREP GROUP A(Performed 08/04/2023) Performed for Strep throat exposure * CBC W AUTO DIFFERENTIAL(Performed 07/28/2023) Performed for Abnormal CBC * CULTURE URINE(Performed 07/06/2023) Performed for Dysuria * URINALYSIS AUTO - POINT OF CARE(Performed 07/06/2023) Performed for Dysuria * THYROID PEROXIDASE ANTIBODY(Performed 06/29/2023) Performed for Fatigue, unspecified type * TSH REFLEX FREE T4(Performed 06/29/2023) Performed for Fatigue, unspecified type * VITAMIN D 25-HYDROXY(Performed 06/29/2023) Performed for Fatigue, unspecified type * VITAMIN B12 FOLATE PANEL(Performed 06/29/2023) Performed for Fatigue, unspecified type * IRON + TIBC + FERRITIN(Performed 06/29/2023) Performed for Fatigue, unspecified type * CBC W AUTO DIFFERENTIAL(Performed 06/29/2023) Performed for Fatigue, unspecified type * CULTURE URINE(Performed 06/29/2023) Performed for Acute UTI * URINALYSIS AUTO - POINT OF CARE(Performed 06/29/2023) Performed for Acute UTI * URINALYSIS AUTO - POINT OF CARE(Performed 02/04/2023) Performed for Irregular periods * HCG URINE QUALITATIVE - POINT OF CARE (AMB)(Performed 02/04/2023) Performed for Irregular periods * CULTURE URINE(Performed 02/04/2023) Performed for Irregular periods * CULTURE URINE(Performed 07/18/2022) Performed for Vaginal irritation * VAGINITIS PLUS (BV CA CT NG TRICH)(Performed 07/18/2022) Performed for Vaginal irritation * URINALYSIS AUTO - POINT OF CARE(Performed 07/18/2022) Performed for Vaginal irritation * IRON + TIBC PANEL(Performed 01/25/2022) Performed for Well adult exam * COMPREHENSIVE METABOLIC PANEL(Performed 01/25/2022) Performed for Well adult exam * CBC W AUTO DIFFERENTIAL(Performed 01/25/2022) Performed for Well adult exam * SONOGRAM - COMPLETE(Performed 01/20/2019) Performed for Supervision of normal first , antepartum ([facility]), Encounter for ultrasound ([facility]), Rh negative state in antepartum period, unspecified trimester ([facility]) Results * IRON + TIBC + FERRITIN (11/10/2023 2:27 PM CDT) Only the most recent of2 resultswithin the time period is included. Iron 71 40 - 190 mcg/dL [facility] TIBC 353 250 - 450 mcg/dL (calc) [facility] % Saturation 20 16 - 45 % (calc) [facility] Ferritin 29 16 - 154 ng/mL [facility] Comment: Test Performed at: [facility] [address] [address] [place] [address] SANDRA CHAN MD Blood BLOOD SPECIMEN / Unknown 11/10/2023 2:27 PM CDT 11/10/2023 2:29 PM CDT Matty Pugh COLOR STRAINER-C DEVELOPER LAB - CHEMISTR Y ORDERABLES [facility] [address] [place] [address] * (ABNORMAL) VITAMIN D 25-HYDROXY (11/10/2023 2:27 PM CDT) Only the most recent of2 resultswithin the time period is included. Pathologist [facility] Vitamin D, 25 Hydroxy 26(L) 30 - 100 ng/mL [facility] Comment: Vitamin D Status 25-OH Vitamin D: Deficiency: <20 ng/mL Insufficiency: 20 - 29 ng/mL Optimal: > or = 30 ng/mL For 25-OH Vitamin D testing on patients on D2-supplementation and patients for whom quantitation of D2 and D3 fractions is required, the QuestAssureD(TM) 25-OH VIT D, (D2,D3), LC/MS/MS is recommended: order code 84771 (patients >2yrs). See Note 1 Note 1 For additional information, please refer to http://education.[facility]/faq/JJU330 (This link is being provided for informational/ educational purposes only.) REPORT COMMENT: FASTING:NO Test Performed at: [facility], [place] [id number] SANDRA CHNA MD Blood BLOOD SPECIMEN / Unknown 11/10/2023 2:27 PM CDT 11/10/2023 2:29 PM CDT Matty Pugh COLOR STRAINER-C DEVELOPER LAB - CHEMISTR Y ORDERABLES [facility] [address] [place] [address] * VITAMIN B12 FOLATE PANEL (11/10/2023 2:27 PM CDT) Only the most recent of2 resultswithin the time period is included. [facility] Vitamin B12 205 200 - 1100 pg/mL [facility] Comment: Please Note: Although the reference range for vitamin B12 is 200-1100 pg/mL, it has been reported that between 5 and 10% of patients with values between 200 and 400 pg/mL may experience neuropsychiatric and hematologic abnormalities due to occult B12 deficiency; less than 1% of patients with values above 400 pg/mL will have symptoms. Folate 12.0 ng/mL [facility] Comment: Reference Range Low: <3.4 Borderline: 3.4-5.4 Normal: >5.4 Test Performed at: [facility] [address] SANDRA CHAN MD Blood BLOOD SPECIMEN / Unknown 11/10/2023 2:27 PM CDT 11/10/2023 2:29 PM CDT Matty Pugh COLOR STRAINER-C DEVELOPER LAB - CHEMISTR Y ORDERABLES [facility] [address] [place] [address] * SKIN TEST PPD - POINT OF CARE (08/06/2023 3:18 PM CRM COORDINATOR) PPD Neg [facility] Other MISCELLANEOUS SAMPLE S / Unknown 08/06/2023 3:18 PM CRM COORDINATOR Matty Pugh APRN-C DEVELOPER LAB - POINT OF CARE ORDERABLES Performing Organization Address City/[facility]/ZIP Co de Phone Number [facility] [address], [place] [address], [facility] [phone] * STREP A SCREEN - POINT OF CARE (AMB) (08/04/2023 4:32 PM CRM COORDINATOR) Strep A Rapid POCT Negative Negative [facility] Strep A Internal Control Present [facility] Other ENTIRE THROAT (SURFACE REGION OF NECK) / Unknown 08/04/2023 4:32 PM CRM COORDINATOR Matty Pugh COLOR STRAINER-C DEVELOPER LAB - POINT OF CARE ORDERABLES Performing Organization Address City/[facility] Co de Phone Number [facility] [address], [place] [address], [facility] [phone] * CULTURE STREP GROUP A (08/04/2023 4:30 PM CRM COORDINATOR) Beta-Strep Culture, Group A Only Negative [facility] ACCOUNT BILL Comment:Reference Range: Neg ative Microbiology ENTIRE THROAT (SURFACE REGION OF NECK) / Unknown 08/04/2023 4:30 PM CRM COORDINATOR 08/04/2023 Narrative Resulting Agency Comment Lab Testing performed at: [facility] [address] [place] [id number] Matty Pugh APRN-C DEVELOPER LAB - MICROBIO LOGY ORDERABLES [facility] ACCOUNT BILL [address] [place] [address] * (ABNORMAL) CBC WITH DIFFERENTIAL (07/28/2023 12:08 PM CRM COORDINATOR) Only the most recent of3 resultswithin the time period is included. White Blood Cell Count 7.4 3.8 - 10.8 Thousand/u L [facility] RBC 4.51 3.80 - 5.10 Million/uL [facility] Hemoglobin 13.5 11.7 - 15.5 g/dL [facility] Hematocrit 39.9 35.0 - 45.0 % [facility] MCV 88.5 80.0 - 100.0 fL [facility] MCH 29.9 27.0 - 33.0 pg [facility] MCHC 33.8 32.0 - 36.0 g/dL [facility] RDW 12.3 11.0 - 15.0 % [facility] Platelet Count 140 140 - 400 Thousand/u L [facility] MPV 13.6(H) 7.5 - 12.5 fL [facility] Neutrophil Absolute 3700 1500 - 7800 cells/uL [facility] Lymphocytes Absolute 3152 850 - 3900 cells/uL [facility] Absolute Monocytes 392 200 - 950 cells/uL [facility] Eosinophils Absolute 104 15 - 500 cells/uL [facility] Basophils Absolute 52 0 - 200 cells/uL [facility] Granulocytes % 50 % [facility] Lymphocytes % 42.6 % [facility] Monocytes % 5.3 % [facility] Eosinophils % 1.4 % [facility] Basophils % 0.7 % [facility] Comment: Test Performed at: [facility] [address] [place] [address] SANDRA CHAN MD Blood BLOOD SPECIMEN / Unknown 07/28/2023 12:08 PM CRM COORDINATOR 07/28/2023 12:08 PM CRM COORDINATOR Matty Pugh COLOR STRAINER-C DEVELOPER LAB - HEMATOLO GY ORDERABLES [facility] [address] [place] [address] * CULTURE URINE (07/06/2023 1:46 PM CRM COORDINATOR) Only the most recent of4 resultswithin the time period is included. Pathologist [facility] Urine Culture Routine Final report [facility] ACCOUNT BILL Result 1 [facility] ACCOUNT BILL Comment: Culture shows less than 10,000 colony forming units of bacteria per milliliter of urine. This colony count is not generally considered to be clinically significant. Urine URINE SPECIMEN OBTAINED BY CLEAN CATCH PROCEDURE / Unknown 07/06/2023 1:46 PM CRM COORDINATOR 07/06/2023 Narrative Resulting Agency Comment Lab Testing performed at: [facility] [place] [address] [facility] [id number] Matty Pugh COLOR STRAINER-C DEVELOPER LAB - MICROBIO LOGY ORDERABLES [facility] ACCOUNT BILL [address] [place] [address] * URINALYSIS AUTO - POINT OF CARE (07/06/2023 12:02 PM CRM COORDINATOR) Only the most recent of4 resultswithin the time period is included. Pathologist [facility] Clarity UA POCT clear [facility] Color UA POCT dark yellow [facility] Leukocyte UA neg Negative [facility] [place] Nitrite UA POCT neg Negative [facility] [place] Urobilinogen UA 0.2 0.1 - 1.0 [facility] [place] Protein UA POCT neg Negative [facility] [place] pH UA 6.0 5.0 - 8.0 pH units [facility] [place] Blood UA neg Negative [facility] [place] Specific [place] UA POCT 1.025 1.002 - 1.030 [facility] Ketone UA neg Negative [facility] Bilirubin UA POCT neg Negative [facility] Glucose UA neg Negative [facility] Urine URINE / Unknown 07/06/2023 1 2:02 PM CRM COORDINATOR Matty Pugh COLOR STRAINER-C DEVELOPER LAB - POINT OF CARE ORDERABLES [facility] [address] [place] [address], [facility] [phone] * TSH REFLEX FREE T4 (06/29/2023 2:38 PM CRM COORDINATOR) Pathologist [facility] TSH with Reflex FT4 0.78 mIU/L [facility] Comment: Reference Range > or = 20 Years 0.40-4.50 Ranges First trimester 0.26-2.66 Second trimester 0.55-2.73 Third trimester 0.43-2.91 Test Performed at: [facility] [place] [address] [place] [place] [address] SANDRA CHAN MD Blood BLOOD SPECIMEN / Unknown 06/29/2023 2:38 PM CRM COORDINATOR 06/29/2023 2:39 PM CRM COORDINATOR Matty Pugh COLOR STRAINER-C DEVELOPER LAB - CHEMISTR Y ORDERABLES Performing Organization Address [facility] Co de Phone Number [facility] [address] [place] [address] * THYROID PEROXIDASE ANTIBODY (06/29/2023 2:38 PM CRM COORDINATOR) Pathologist [facility] Thyroid Peroxidase TPO Antibody <1 <9 IU/mL [facility] Comment: Test Performed at: [facility] [address] [address] TERRI GRACE Blood BLOOD SPECIMEN / Unknown 06/29/2023 2:38 PM CRM COORDINATOR 06/29/2023 2:39 PM CRM COORDINATOR Matty Pugh COLOR STRAINER-C DEVELOPER LAB - CHEMISTR Y ORDERABLES Performing Organization Address [facility] Co de Phone Number [facility] [address] [place] [address] * HCG URINE QUALITATIVE - POINT OF CARE (AMB) (02/04/2023 3:19 PM CDT) Pathologist [facility] HCG Qual Urine Negative Negative [facility] QC Verified Yes Yes [facility] Comment:Lot #[id number] Exp 11/20/2023 Urine URINE / Unknown 02/04/2023 3 :19 PM CDT Matty Pugh COLOR STRAINER-C DEVELOPER LAB - POINT OF CARE ORDERABLES Performing Organization Address City/[facility] Co de Phone Number [facility] [address], [address] [phone] * VAGINITIS PLUS (BV CA CT NG TRICH) (07/18/2022 2:38 PM CRM COORDINATOR) Atopobium vaginae Low - 0 Score [facility] INSURANCE BILL BVAB 2 Low - 0 Score [facility] INSURANCE BILL Megashaera Low - 0 Score [facility] INSURANCE BILL Comment: Calculate total score by adding the 3 individual bacterial vaginosis (BV) marker scores together. Total score is interpreted as follows: Total score 0-1: Indicates the absence of BV. Total score 2: Indeterminate for BV. Additional clinical data should be evaluated to establish a diagnosis. Total score 3-6: Indicates the presence of BV. . This test was developed and its performance characteristics determined by [facility]. It has not been cleared or approved by the Food and Drug Administration. Trudi albicans YAMILKA Negative Negative [facility] INSURANCE BILL Trudi glabrata YAMILKA Negative Negative [facility] INSURANCE BILL Trichomonas vaginalis by YAMILKA Negative Negative [facility] INSURANCE BILL Chlamydia Trachomatis YAMILKA Negative Negative [facility] INSURANCE BILL GC YAMILKA Negative Negative [facility] INSURANCE BILL Microbiology ENTIRE VAGINA / Unknown 07/18/2022 2:38 PM CRM COORDINATOR 07/18/2022 Narrative [facility] INSURANCE BILL - 07/21/2022 1:08 PM CRM COORDINATOR Test(s) 442008-Ruczfpk albicans, YAMILKA; 448919-Vuvejgb glabrata, YAMILKA was developed and its performance characteristics determined by [facility]. It has not been cleared or approved by the Food and Drug Administration. Resulting Agency Comment Lab Testing performed at: [facility] [id number] Matty Pugh COLOR STRAINER-C DEVELOPER LAB - MICROBIO LOGY ORDERABLES [facility] INSURANCE BILL [address] [place] [address] * COMPREHENSIVE METABOLIC PANEL (01/25/2022 11:40 AM CDT) Glucose 81 65 - 99 mg/dL [facility] Comment: Fasting reference interval BUN 10 7 - 25 mg/dL [facility] Creatinine 0.76 0.50 - 0.96 mg/dL [facility] eGFR by Cystatin C 113 > OR = 60 mL/min/1. 73m2 [facility] Comment: The eGFR is based on the CKD-EPI 2020 equation. To calculate the new eGFR from a previous Creatinine or Cystatin C result, go to https://www.kidney.org/professionals/ kdoqi/gfr%5Fcalculator BUN/Creatinine Ratio NOT APPLICABLE 6 - (calc) [facility] Sodium 140 135 - 146 mmol/L [facility] Potassium 5.0 3.5 - 5.3 mmol/L [facility] Chloride 104 98 - 110 mmol/L [facility] CO2 27 20 - 32 mmol/L [facility] Calcium 9.8 8.6 - 10.2 mg/dL [facility] Protein Total 6.8 6.1 - 8.1 g/dL [facility] Albumin 4.6 3.6 - 5.1 g/dL [facility] Globulin Total 2.2 1.9 - 3.7 g/dL (calc) [facility] Albumin/Globuli n Ratio 2.1 1.0 - 2.5 (calc) [facility] Bilirubin Total 0.9 0.2 - 1.2 mg/dL [facility] Alkaline Phosphatase 81 31 - 125 U/L [facility] AST 14 10 - 30 U/L [facility] ALT 8 6 - 29 U/L [facility] Comment: Test Performed at: [place] [address] YENIFER TAVERAS DO,MPH Blood BLOOD SPECIMEN / Unknown 01/25/2022 11:40 AM CDT 01/25/2022 11:42 AM CDT Matty Pugh COLOR STRAINER-C DEVELOPER LAB - CHEMISTR Y ORDERABLES Performing Organization Address City/State/[facility] Co de Phone Number [facility] [address] [place] [address] * IRON + TIBC PANEL (01/25/2022 11:40 AM CDT) Iron 128 40 - 190 mcg/dL [facility] TIBC 361 250 - 450 mcg/dL (calc) [facility] % Saturation 35 16 - 45 % (calc) [facility] Comment: Test Performed at: [facility] [address] [place] [address] YENIFER TAVERAS DO,MPH Blood BLOOD SPECIMEN / Unknown 01/25/2022 11:40 AM CDT 01/25/2022 11:42 AM CDT Matty [place] Pugh COLOR STRAINER-C DEVELOPER LAB - CHEMISTR Y ORDERABLES [facility] [address] [place] [address] * SONOGRAM - COMPLETE (01/20/2019 10:50 AM CDT) Anatomical Region Laterality Modality Other 01/20/2019 10:5 0 AM CDT Narrative 01/20/2019 12:33 PM CDT [facility] PHONE: FAX: Pat. Name: TRISTA EDWARDS Rosemary. No: [id number] Study Date: 01/20/2019 10:50am , Age: 01 2000, 18 Pregnancies: 1 Height: 62 in Weight: 117 lb LMP: 08/09/2018 GA by LMP: 23w3d GA by US: 23w5d GILLIAN: 05/14/2019 GA Selected: 23w3d (LMP) GILLIAN: 05/16/2019 Referring MD: Tameka Baltazar MD Meat Counter Worker: Antonia Castro RDMS CPT4: 84016 BMI: 21.4 Hist/Ind: Hx Family Blood disorder FOB 1 kidney Rubella Non Immune MEASUREMENTS & AGE GROWTH EVALUATION Measurement GA Range Srce %for GA Ratios ----- ---- ------- BPD 5.8 cm 23w4d (56d5i-62a3w) Hadl BPD 52% FL/BPD 0.75 (0.71 - 0.87) HC 21.6 cm 23w4d (11f1x-42s9o) Hadl HC 41% FL/AC 0.23 (0.20 - 0.24) AC 18.4 cm 23w2d (57s9c-43z7j) Hadl AC 36% HC/AC 1.17 (1.03 - 1.22) FL 4.3 cm 24w1d (01o8t-40e1u) Hadl FL 61% CI 0.74 (0.70 - 0.86) HL 3.8 cm 23w1d (30r5a-55n9s) Skyler HL 46% Cere 2.8 cm 24w4d (54i5c-71g8w) James Cere76% GA for sonogram 23w5d (78z5j-75m3f) Weight Estimate: based on (BPD,HC,AC,FL) Avg Weight: 613 gm (523-702gm) Hadloc : 1lbs, 5oz Normal: 609 gm (457-761gm) [facility]loc Wt% 53% for 23w3d EVAL, PLACENTA Presentation: cephalic Umbilical Cord: 3 Vessels Placenta: posterior Amniotic Fluid Volume: normal Anatomy!Normal!Abnormal!Suboptimal!Prev. Seen!Comments Cranium ! x ! ! ! ! Mdl (CSP/Thal! x ! ! ! ! Ventricles ! x ! ! ! ! Choroid Plexu! x ! ! ! ! Cerebellum ! x ! ! ! ! Cisterna M. ! x ! ! ! ! Nuchal Fold ! x ! ! ! ! Profile ! x ! ! ! ! Nasal Bone ! x ! ! ! ! Lip ! x ! ! ! ! Spine ! x ! ! ! ! Lungs ! x ! ! ! ! 4 Chamber Hea! x ! ! ! ! LVOT ! x ! ! ! ! RVOT ! x ! ! ! ! 3 Vessel View! x ! ! ! ! Cross-over ! x ! ! ! ! Ductal Arch ! x ! ! ! ! Aortic Arch ! x ! ! ! ! Caval View ! x ! ! ! ! Situs ! x ! ! ! ! Diaphragm ! x ! ! ! ! Stomach ! x ! ! ! ! Bowel ! x ! ! ! ! Kidneys ! x ! ! ! ! Bladder ! x ! ! ! ! 3 Vessel Cord! x ! ! ! ! Cord In! x ! ! ! ! Upper Extremi! x ! ! ! ! Hands ! x ! ! ! ! Lower Extreme! x ! ! ! ! Feet ! x ! ! ! ! External Roxana! x ! ! ! !Male Placental Cor! x ! ! ! ! CLINICAL SUMMARY Study Number: 1 A single fetus is seen in the cephalic presentation. The measurements today are consistent with what is expected. The GILLIAN is based on a prior ultrasound and LMP. The amniotic fluid volume is normal. No obvious structural anomalies are seen. IMPRESSION: Single, live, IUP at 23w3d. growth: Normal Amniotic fluid volume: Normal RECOMMEND: Follow up ultrasound as clinically indicated. Thank you for allowing us the opportunity to care for your patient. Niranjan Marsh MD <Electronic Signature> 01/20/2019 12:27pm Ordering Provider Unlisted MD ANGIE MODI [facility] Care Teams Ethologist Relationship Specialty Start Date End Date Calvin Haro MD [address] [place] [address] PCP - General Family Medicine 11/09/23 Matty Pugh, COLOR STRAINER-C DEVELOPER [address] [place] [address] Nurse Practitioner Family 01/23/22 Matty Pugh, COLOR STRAINER-C DEVELOPER [address] [place] [address] Nurse Practitioner Nurse Practitioner Family 11/09/23
--- OUTSIDE RECORDS SUMMARY | 2024-08-02 21:02 | XMS_ITS | Data Portability ---
Author Organization [employer] , [facility] Address [address] [place] [address] Assessment No assessment recorded. Plan of Treatment Reminders Order Date Submit Date Provider Last Modified By Organization Details Last Modified Time Details Appointments None recorded. Lab culture, urine 2023 024 [employer] [facility], [address] [place], [address], 4 00:31:42 urinalysis, dipstick 2023 024 [email or web address] 0 [facility], [address] [facility], [place], [address], 4 14:30:56 CBC w/ auto diff 2024 025 [facility], [address] [place], [address], 5 13:26:00 vitamin D, 25-hydroxy, total, serum 2024 025 [employer] [facility], [address] [place], [address], 5 13:19:36 vitamin B12 + folate, serum or blood 2024 025 [employer] [facility], [address] [place], [address], 5 13:19:35 Referral None recorded. Procedures None recorded. Surgeries None recorded. Imaging non-stress test 2023 024 [email or web address] [facility], [address] [place], [address], 4 05:25:04 US, obstetric, biophysical profile 2023 024 [email or web address] 0 [facility], [address] [place], [address], 4 08:41:12 Medication Orders citalopram 10 mg tablet 2023 025 [id number], [address], [place], [id number], 5 09:55:14 Patient TargetsNo targets recorded. 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 [email or web address] Not available 04/28/2024 14:13:56 Care at Home With Your Baby: Care Instructions [email or web address] Not available 04/28/2024 14:13:56 control after counseling [email or web address] Not available 04/28/2024 14:13:56 07/06/2024 [id number] A healthy lifestyle: care instructions [email or web address] Not available 07/06/2024 10:40:10 substance use disorder: care instructions [email or web address] Not available 07/06/2024 10:40:10 tobacco cessation [email or web address] Not availab le 07/06/2024 10:40:10 Following the [employer] Guide: Care Instructions [email or web address] Not available 07/06/2024 10:40:10 exercise program : getting started [id number] Not available 07/06/2024 10:40:10 breast self-exam : care instructions [email or web address] Not available 07/06/2024 10:40:10 Reason for Referral None Reported. Results Created Date Observation Date Name Description Value Unit Range Abnormal Flag Note LastModifiedBy Organization Detail LastModifiedTime 03/22/20 24 03/25/2024 CULTU RE, GROUP B STREP WITH SUSCE PTIBI LITY culture, group B strep with susceptibili ty SEE NOTE CULTU RE, GROUP B STREP WITH SUSCE PTIBI LITY Micro Numbe r: [id number] Test Statu s: Final Speci men Sourc e: Recto vag Speci men Quali ty: Adequ ate Resul t: No group B Strep tococ cus isola deric Note per CDC guide lines optim al recov flo is achie erick by swabb ing both the lower vagin a and rectu m (thro ugh the anal sphin cter) . Not Available [facility] [address] [place], [address], 03/25/2024 07:43:58 03/23/2003/23/2024 AMYLA SE amylase 44 units /L 25-115 Not Available [facility] (Lab) [place], [address], 03/23/2024 14:25:21 03/23/20 24 03/23/2024 COMPR EHENS XOCHILT METAB OLIC PANEL glucose 76 mg/dL 70-99 Not Available [facility] (Lab) [place], [address], 03/23/2024 14:25:23 03/23/20 24 03/23/2024 COMPR EHENS XOCHILT METAB OLIC PANEL BUN 4 mg/dL 7-18 low Not Available [facility] (Lab) [place], [address], 03/23/2024 14:25:23 03/23/20 24 03/23/2024 COMPR EHENS XOCHILT METAB OLIC PANEL creatinine 0.58 mg/dL 0.55-1 .02 Not Available [facility] (Lab) [place], [address], 03/23/2024 14:25:23 03/23/20 24 03/23/2024 COMPR EHENS XOCHILT METAB OLIC PANEL sodium 138 mmol/ L 136-14 5 Not Available [facility] (Lab) [place], [address], 03/23/2024 14:25:23 03/23/20 24 03/23/2024 COMPR EHENS XOCHILT METAB OLIC PANEL potassium 3.9 mmol/ L 3.5-5. 1 Not Available [facility] (Lab) [place], [address], 03/23/2024 14:25:23 03/23/20 24 03/23/2024 COMPR EHENS XOCHILT METAB OLIC PANEL chloride 108 mmol/ L 97-115 Not Available [facility] (Lab) [place], [address], 03/23/2024 14:25:23 03/23/20 24 03/23/2024 COMPR EHENS XOCHILT METAB OLIC PANEL total CO2 23.7 mmol/ L 21-32 Not Available [facility] (Lab) [place], [address], 03/23/2024 14:25:23 03/23/20 24 03/23/2024 COMPR EHENS XOCHILT METAB OLIC PANEL calcium 8.8 mg/dL 8.5-10 .1 Not Available [facility] (Lab) [place], [address], 03/23/2024 14:25:23 03/23/20 24 03/23/2024 COMPR EHENS XOCHILT METAB OLIC PANEL total bilirubin 0.5 mg/dL 0.2-1. 2 THIS ASSAY IS NOT RECOM CELI D FOR PATIE NTS UNDER GOING TREAT MENT WITH ELTRO MBOPA G DUE TO THE POTEN TIAL FOR FALSE LY ELEVA DERIC RESUL TS. Not Available [facility] (Lab) [address] [place], [address], 03/23/2024 14:25:23 03/23/20 24 03/23/2024 COMPR EHENS XOCHILT METAB OLIC PANEL total protein 6.6 g/dL 6.4-8. 2 Not Available [facility] (Lab) [address] [facility], [place], [address], 03/23/2024 14:25:23 03/23/20 24 03/23/2024 COMPR EHENS XOCHILT METAB OLIC PANEL albumin 2.9 g/dL 3.4-5. 0 low Not Available [facility] (Lab) [address] [facility], [place], [address], 03/23/2024 14:25:23 03/23/20 24 03/23/2024 COMPR EHENS XOCHILT METAB OLIC PANEL AST 14 U/L 15-37 low Not Available [facility] (Lab) [address] [facility], [place], [address], 03/23/2024 14:25:23 03/23/20 24 03/23/2024 COMPR EHENS XOCHILT METAB OLIC PANEL ALT 12 U/L 14-55 low Not Available [facility] (Lab) [place], [address], 03/23/2024 14:25:23 03/23/20 24 03/23/2024 COMPR EHENS XOCHILT METAB OLIC PANEL alk phosphatase 148 U/L 50-136 high Not Available [facility] (Lab) [place], [address], 03/23/2024 14:25:23 03/23/20 24 03/23/2024 COMPR EHENS XOCHILT METAB OLIC PANEL anion gap 6.3 mmol/ L 2-10 Not Available [facility] (Lab) [place], [address], 03/23/2024 14:25:23 03/23/20 24 03/23/2024 COMPR EHENS XOCHILT METAB OLIC PANEL BUN creatinine ratio 6.9 6-26 Not Available [facility] (Lab) [place], [address], 03/23/2024 14:25:23 03/23/20 24 03/23/2024 COMPR EHENS XOCHILT METAB OLIC PANEL A:g ratio 0.8 ratio 1.0-2. 0 low Not Available [facility] (Lab) [address], [place], [address], 03/23/2024 14:25:23 03/23/2003/23/2024 COMPR EHENS XOCHILT METAB OLIC PANEL est GFR >90 mL/mi n/1.7 3_M2 >90 NOTE: eGFR is not calcu lated for patie nts <18 years of age or gende r unkno wn. This is an estim ated GFR calcu latio n using the new CKD EPI creat inine equat ion witho ut race and so does not requi re a corre ction facto r for race. This estim ated GFR shoul d not be used for calcu latin g drug doses . Not Available [facility] (Lab) [place], [address], 03/23/2024 14:25:23 03/23/2003/23/2024 LIPAS E lipase 26 units /L 13-75 Not Available [facility] (Lab) [place], [address], 03/23/2024 14:25:24 03/29/20 24 03/30/2024 DRUGS OF ABUSE PANEL , URINE amphetamines , urine NEGATI VE neg Not Available [facility] (Lab) [place], [address], 03/30/2024 15:24:18 03/29/20 24 03/30/2024 DRUGS OF ABUSE PANEL , URINE barbituates, urine NEGATI VE neg Not Available [facility] (Lab) [address] [facility], [place], [address], 03/30/2024 15:24:18 03/29/20 24 03/30/2024 DRUGS OF ABUSE PANEL , URINE benzodiazapi owen, urine NEGATI VE neg Not Available [facility] (Lab) [address] [facility], [place], [address], 03/30/2024 15:24:18 03/29/20 24 03/30/2024 DRUGS OF ABUSE PANEL , URINE cannabinoids /THC, urine NEGATI VE neg Not Available [facility] (Lab) [address] [facility], [place], [address], 03/30/2024 15:24:18 03/29/20 24 03/30/2024 DRUGS OF ABUSE PANEL , URINE cocaine, urine NEGATI VE neg Not Available [facility] (Lab) [place], [address], 03/30/2024 15:24:18 03/29/20 24 03/30/2024 DRUGS OF ABUSE PANEL , URINE methadone, urine NEGATI VE neg Not Available [facility] (Lab) [place], [address], 03/30/2024 15:24:18 03/29/20 24 03/30/2024 DRUGS OF ABUSE PANEL , URINE opiates, urine NEGATI VE neg Not Available [facility] (Lab) [place], [address], 03/30/2024 15:24:18 03/29/20 24 03/30/2024 DRUGS OF ABUSE PANEL , URINE phencyclidin es, urine NEGATI VE neg NOTE: RESUL TS OF THIS DRUG MYRAE N LUIS D BE USED FOR MEDIC AL PURPO SES ONLY AND NOT FOR LEGAL OR EMPLO YMENT PURPO SES. POSIT XOCHILT RESUL TS ARE NOT CONFI RMED. MEDIC ATION S CONTA INING EPHED RINE MAY CAUSE FALSE POSIT XOCHILT AMPHE TAMIN E CALL [phone], LAB, TO REQUE ST CONFI RMATI ON TESTI NG. IF CREAT ININE IS <40 mg/dL . RECOL LECTI ON IS SUGGE STED. AMPHE TAMIN E- 500 NG/ML MARRY TURAT E- 200 NG/ML BENZO DIAZE PINES - 200 NG/ML THC- 50 NG/ML COCAI NE- 150 NG/ML METHA DONE- 300 NG/ML OPIAT E- 300 MG/ML PCP- 25 NG/ML Not Available [facility] (Lab) [place], [address], 03/30/2024 15:24:18 03/29/2003/30/2024 DRUGS OF ABUSE PANEL , URINE creatinine, urine 17.0 mg/dL 28-217 low Not Available [facility] (Lab) [place], [address], 03/30/2024 15:24:18 03/30/20 24 03/30/2024 CBC WITH DIFF WBC 6.24 x10'3 /uL 4.5-11 .0 Not Available [facility] (Lab) [place], [address], 03/30/2024 13:41:18 03/30/20 24 03/30/2024 CBC WITH DIFF RBC 4.06 x10'6 /uL 4.20-5 .40 low Not Available [facility] (Lab) [address] [facility], [place], [address], 03/30/2024 13:41:18 03/30/2003/30/2024 CBC WITH DIFF hemoglobin 12.2 g/dL 12.0-1 6.0 Not Available [facility] (Lab) [address] [facility], [place], [address], 03/30/2024 13:41:18 03/30/2003/30/2024 CBC WITH DIFF hematocrit 35.3 % 38.0-4 8.0 low Not Available [facility] (Lab) [address] [facility], [place], [address], 03/30/2024 13:41:18 03/30/2003/30/2024 CBC WITH DIFF MCV 86.9 fL 81.0-9 9.0 Not Available [facility] (Lab) [address] [facility], [place], [address], 03/30/2024 13:41:18 03/30/2003/30/2024 CBC WITH DIFF MCH 30.0 pg 27.0-3 1.0 Not Available [facility] (Lab) [address] [facility], [place], [address], 03/30/2024 13:41:18 03/30/2003/30/2024 CBC WITH DIFF MCHC 34.6 g/dL 32.0-3 6.0 Not Available [facility] (Lab) [address] [facility], [place], [address], 03/30/2024 13:41:18 03/30/2003/30/2024 CBC WITH DIFF RDW 12.6 % 11.5-1 4.5 Not Available [facility] (Lab) [address] [facility], [place], [address], 03/30/2024 13:41:18 03/30/2003/30/2024 CBC WITH DIFF platelet count 152 x10'3 /uL 130-40 0 Not Available [facility] (Lab) [address], [place], [address], 03/30/2024 13:41:18 03/30/2003/30/2024 CBC WITH DIFF MPV 12.4 fL 9.3-12 .2 high Not Available [facility] (Lab) [address] [facility], [place], [address], 03/30/2024 13:41:18 03/30/2003/30/2024 CBC WITH DIFF diff type AUTOMA DERIC DIFFER ENTIAL Not Available [facility] (Lab) [address] [facility], [place], [address], 03/30/2024 13:41:18 03/30/20 24 03/30/2024 CBC WITH DIFF neutrophils 70.1 % Not Available [facility] (Lab) [address] [facility], [place], [address], 03/30/2024 13:41:18 03/30/2003/30/2024 CBC WITH DIFF lymphocytes 21.0 % Not Available [facility] (Lab) [address] [facility], [place], [address], 03/30/2024 13:41:18 03/30/2003/30/2024 CBC WITH DIFF monocytes 7.5 % Not Available [facility] (Lab) [address] [facility], [place], [address], 03/30/2024 13:41:18 03/30/20 24 03/30/2024 CBC WITH DIFF eosinophils 0.3 % Not Available [facility] (Lab) [address] [facility], [place], [address], 03/30/2024 13:41:18 03/30/2003/30/2024 CBC WITH DIFF basophils 0.5 % Not Available [facility] (Lab) [place], [address], 03/30/2024 13:41:18 03/30/2003/30/2024 CBC WITH DIFF immature granulocytes 0.6 % Not Available [facility] (Lab) [address] [facility], [place], [address], 03/30/2024 13:41:18 03/30/2003/30/2024 CBC WITH DIFF abs. neutrophils 4.37 x10'3 /uL 1.80-7 .70 Not Available [facility] (Lab) [address] [facility], [place], [address], 03/30/2024 13:41:18 03/30/2003/30/2024 CBC WITH DIFF abs. lymphocytes 1.31 x10'3 /uL 1.00-4 .80 Not Available [facility] (Lab) [place], [address], 03/30/2024 13:41:18 03/30/2003/30/2024 CBC WITH DIFF abs. monocytes 0.47 x10'3 /uL 0.24-0 .86 Not Available [facility] (Lab) [place], [address], 03/30/2024 13:41:18 03/30/2003/30/2024 CBC WITH DIFF abs. eosinophils 0.02 x10'3 /uL 0.04-0 .36 low Not Available [facility] (Lab) [address], [place], [address], 03/30/2024 13:41:18 03/30/20 24 03/30/2024 CBC WITH DIFF abs. basophils 0.03 x10'3 /uL 0.01-0 .08 Not Available [facility] (Lab) [address], [place], [address], 03/30/2024 13:41:18 03/30/20 24 03/30/2024 CBC WITH DIFF abs. immature grans 0.04 x10'3 /uL 0.00-0 .49 Not Available [facility] (Lab) [address], [place], [address], 03/30/2024 13:41:18 03/30/20 24 03/30/2024 SYPHI LIS IGG IGM AB syphilis IgG IgM Ab NON-RE ACTIVE nr No serol ogic evide nce of syphi lis. No follo w-up neces nick unles s clini rory indic ated. Not Available [facility] (Lab) [address], [place], [address], 03/30/2024 14:14:20 03/30/20 24 03/30/2024 TYPE AND SCREE N ABO/Rh(D) O NEGATI VE Not Available [facility] (Lab) [address], [place], [address], 03/30/2024 16:10:10 03/30/20 24 03/30/2024 TYPE AND SCREE N antibody screen POSITI VE Not Available [facility] (Lab) [address], [place], [address], 03/30/2024 16:10:10 03/30/20 24 03/30/2024 TYPE AND SCREE N xm expiration 2023,2 359 Not Available [facility] (Lab) [address] [facility], [place], [address], 03/30/2024 16:10:10 03/30/20 24 03/30/2024 TYPE AND SCREE N antibody id NO ALLOAN TIBODI ES DETECT ED Not Available [facility] (Lab) [address] [facility], [place], [address], 03/30/2024 16:10:10 03/30/20 24 03/30/2024 TYPE AND SCREE N comment ANTI-D MOST LIKELY DUE TO RECENT RH IMMUNE GLOBUL IN INJECT ION. Not Available [facility] (Lab) [address] [facility], [place], [address], 03/30/2024 16:10:10 04/28/20 24 04/29/2024 CULTU RE, URINE , ROUTI NE culture, urine, routine SEE NOTE CULTU RE, URINE , ROUTI NE Micro Numbe r: [id number] Test Statu s: Final Speci men Sourc e: Urine Speci men Quali ty: Adequ ate Resul t: No Growt h Not Available [address] [address] [place], [address], 04/30/2024 00:31:42 04/28/20 24 04/28/2024 urina lysis , dipst ick Leukocytes Negati ve Not Available [address], [address], 04/28/2024 14:23:29 04/28/20 24 04/28/2024 urina lysis , dipst ick Nitrite negati ve Not Available [address], [address], 04/28/2024 14:23:29 04/28/20 24 04/28/2024 urina lysis , dipst ick Urobilinogen .2 Not Available [address], [address], 04/28/2024 14:23:29 04/28/20 24 04/28/2024 urina lysis , dipst ick Protein Negati ve Not Available [address], [address], 04/28/2024 14:23:29 04/28/20 24 04/28/2024 urina lysis , dipst ick pH 5.0 Not Available [address], [address], 04/28/2024 14:23:29 04/28/20 24 04/28/2024 urina lysis , dipst ick Blood Modera te Not Available [address], [address], 04/28/2024 14:23:29 04/28/20 24 04/28/2024 urina lysis , dipst ick Specific [place] 1.000 Not Available [address], [address], 04/28/2024 14:23:29 04/28/20 24 04/28/2024 urina lysis , dipst ick Ketone Negati ve Not Available [address], [address], 04/28/2024 14:23:29 04/28/20 24 04/28/2024 urina lysis , dipst ick Bilirubin Negati ve Not Available [address], [address], 04/28/2024 14:23:29 04/28/20 24 04/28/2024 urina lysis , dipst ick Glucose Negati ve Not Available [address], [address], 04/28/2024 14:23:29 04/28/20 24 04/28/2024 urina lysis , dipst ick Appearance Clear Not Available [address], [address], 04/28/2024 14:23:29 04/28/20 24 04/28/2024 urina lysis , dipst ick Color Pale Yellow Not Available [address], [address], 04/28/2024 14:23:29 07/06/1907/07/2024 VITAM IN B12/F OLATE , SERUM PANEL vitamin B12 382 pg/mL 200-11 00 normal Pleas e Note: Altho ugh the refer ence range for vitam in B12 is 200-1 100 pg/mL , it has been repor deric that betwe en 5 and 10% of patie nts with value s betwe en 200 and 400 pg/mL may exper ience neuro psych iatri c and hemat ologi c abnor malit ies due to occul t B12 defic iency ; less than 1% of patie nts with value s above 400 pg/mL will have sympt oms. Not Available [facility] [address] [place], [address], 07/07/2024 13:19:35 07/06/1907/07/2024 VITAM IN B12/F OLATE , SERUM PANEL folate, serum 14.4 NG/mL normal Refer ence Range Low: <3.4 Borde rline : 3.4-5 .4 Yari l: >5.4 Not Available [facility] [address] [place], [address], 07/07/2024 13:19:35 07/06/1907/07/2024 VITAM IN D,25- OH,TO JOSLYN,I A vitamin D,25-oh,tota l,ia 25 NG/mL 30-100 low Vitam in D Statu s 25-OH Vitam in D: Defic iency : <20 ng/mL Insuf ficie ncy: 20 - 29 ng/mL Optim al: > or = 30 ng/mL For 25-OH Vitam in D testi ng on patie nts on D2-muñoz pplem entat ion and patie nts for whom quant itati on of D2 and D3 fract ions is requi red, the [employer] Assur eD(TM ) 25-OH VIT D, (D2,D 3), LC/MS /MS is recom celi d: order code 44758 (ap ents >2yrs ). See Note 1 Note 1 For addit ional infor neil morales refer to http: [email or web address] [email or web address] om/fa q/FAQ 199 (This link is being provi ded for infor faye tafoya/ simi lennon purpo ses only. ) Not Available [employer] [facility] [address] [place], [address], 07/07/2024 13:19:36 07/06/1907/07/2024 CBC (INCL UDES DIFF/ PLT) WBC 5.5 thous and/u L 4.0 - 9.8 normal Not [place], [address], 07/07/2024 13:26:00 07/06/1907/07/2024 CBC (INCL UDES DIFF/ PLT) RBC 4.5 cade on/uL 3.9 - 4.9 normal Not [place], [address], 07/07/2024 13:26:00 07/06/1907/07/2024 CBC (INCL UDES DIFF/ PLT) hemoglobin 12.9 g/dL 11.8 - 14.8 normal Not [place], [address], 07/07/2024 13:26:00 07/06/19 25 07/07/2024 CBC (INCL UDES DIFF/ PLT) hematocrit 39.2 % 35.5 - 44.0 normal Not Available [address], [address], 07/07/2024 13:26:00 07/06/19 25 07/07/2024 CBC (INCL UDES DIFF/ PLT) MCV 87.5 fL 82.0 - 99.0 normal Not Available [address], [address], 07/07/2024 13:26:00 07/06/1907/07/2024 CBC (INCL UDES DIFF/ PLT) MCH 28.8 pg 27.2 - 32.6 normal Not Available [address], [address], 07/07/2024 13:26:00 07/06/19 25 07/07/2024 CBC (INCL UDES DIFF/ PLT) MCHC 32.9 g/dL 31.5 - 35.5 normal Not Available [address], [address], 07/07/2024 13:26:00 07/06/19 25 07/07/2024 CBC (INCL UDES DIFF/ PLT) RDW-CV 11.9 % 11.5 - 14.5 normal Not Available [address], [address], 07/07/2024 13:26:00 07/06/19 25 07/07/2024 CBC (INCL UDES DIFF/ PLT) platelet 181 thous and/u L 140 - 350 normal Not Available [address], [address], 07/07/2024 13:26:00 07/06/19 25 07/07/2024 CBC (INCL UDES DIFF/ PLT) MPV 13.8 fL 9.3 - 12.4 high Not Available [address], [address], 07/07/2024 13:26:00 07/06/19 25 07/07/2024 CBC (INCL UDES DIFF/ PLT) absolute neutrophil 2.99 thous and/u L 1.90 - 7.00 normal Not Available [address], [address], 07/07/2024 13:26:00 07/06/19 25 07/07/2024 CBC (INCL UDES DIFF/ PLT) absolute lymphocyte 1.97 thous and/u L 0.70 - 4.50 normal Not Available [address], [address], 07/07/2024 13:26:00 07/06/19 25 07/07/2024 CBC (INCL UDES DIFF/ PLT) absolute monocyte 0.33 thous and/u L 0.10 - 1.30 normal Not Available [address], [address], 07/07/2024 13:26:00 07/06/19 25 07/07/2024 CBC (INCL UDES DIFF/ PLT) absolute eosinophil 0.12 thous and/u L <0.70 normal Not Available [address], [address], 07/07/2024 13:26:00 07/06/19 25 07/07/2024 CBC (INCL UDES DIFF/ PLT) absolute basophil 0.07 thous and/u L <0.20 normal Not Available [address], [address], 07/07/2024 13:26:00 07/06/19 25 07/07/2024 CBC (INCL UDES DIFF/ PLT) absolute immature granulocyte 0.00 thous and/u L <0.03 normal Not Available [address], [address], 07/07/2024 13:26:00 03/24/20 24 03/24/2024 US, abdom en, limit ed [facility] [place] [address] [facility] [address] [place] [address] Proced ure: US ABD LIMITE D Indica tion: poor appeti te Compar may: CT abdome n and pelvis 06/26/19 Techni que: Graysc jerilyn and color Dopple r ultras ound of the right upper quadra nt was perfor med. Findin gs: Gallbl adder: Intral uminal conten ts: No stones or sludge . Wall thickn ess: 0.2 cm. This is within normal limits . Disten tion: Not abnorm ally disten ded. Perich olecys tic fluid: No perich olecys tic fluid. Sonogr aphic Pineda 's sign is absent . Bile Ducts: No intrah epatic or extrah epatic ductal dilati on Common bile duct diamet er: 0.4 cm. Liver: Normal echoge nicity . No focal mass. The main portal vein is patent with approp riate direct ion of flow. There liver measur es 16.5 cm. Pancre as: Visual ized portio ns are within normal limits . Kidney s: Right kidney measur es 11.7 x 5.5 x 5.7 cm. No hydron ephros is. Echoge will calcul us in the inferi or pole right kidney measur ing 3 x 2 x 3 mm. Fluid: None. Impres valorie: 1. No cholel ithias is or eviden ce of acute cholec ystiti s. 2. Nonobs tructi ng right nephro lithia sis. Referr ed By: Electr onical ly Signed By: Konrad Beltran MD on 11:59 AM Interp reted By: Konrad Beltran MD, 11:57 AM [email or web address] [facility] [address], [place], [address], 03/25/2024 09:34:26 04/04/20 24 04/04/2024 [place], obste tric No observ ation record ed. [email or web address] [address], [place], [address], 04/05/2024 22:05:56 04/07/20 24 [place], obste tric, bioph ysica l profi le No observ ation record ed. [email or web address] [facility]_melbeta [address] [facility], [place], [address], 04/07/2024 05:31:13 Result Notes None recorded. Problems Name Problem SNOMED Code Status Onset Date Resolution Date Notes Provider Name and Address Organization Details Recorded Time Pregnanc y, childbir th and puerperi um finding Completed 201802/13/2021 Encounroberta r for supervis ion of normal first pregnanc y, third trimeste r; Progress : Stable Added By: Regan Chilel Add to Current Problems : NO ProblemS tatus: Resolve Not Available [facility] 2 22:11:10 Vaginola bial hernia Completed 202002/13/2021 Other specifie d noninfla mmatory disorder s of vagina; Progress : Stable Added By: Kenyatta Bautista Add to Current Problems : NO ProblemS tatus: Resolve [facility] 2 22:11:50 Gestatio n period, 28 weeks [id number] Completed 201803/28/2019 28 weeks gestatio n of pregnanc y; Severity : Moderate Progress : Stable Added By: Gurpreet Rowell Add to Current Problems : NO ProblemS tatus: Resolve Sabiha Mason [facility], [facility] 3 09:42:49 Educatio n Completed 201902/13/2021 Encounroberta r for other general counseli ng and advice on contrace ption; Progress : Stable Added By: Joni Leger Add to Current Problems : NO ProblemS tatus: Resolve Not Available [facility] 2 22:11:50 Gestatio n period, 11 weeks [id number] Completed 201803/28/2019 11 weeks gestatio n of pregnanc y; Progress : Stable Added By: Gurpreet Rowell Add to Current Problems : NO ProblemS tatus: Resolve Not Available [facility] 2 22:11:36 Gestatio n period, 12 weeks [id number] Completed 202002/13/2021 12 weeks gestatio n of pregnanc y; Progress : Stable Added By: Gurpreet Rowell Add to Current Problems : NO ProblemS tatus: Resolve Not Available [facility] 2 22:11:52 Clinical finding Completed 201902/13/2021 Encounte r for initial prescrip tion of injectab le contrace ptive; Progress : Stable Added By: Joni Leger Add to Current Problems : NO ProblemS tatus: Resolve Not Available [facility] 2 22:11:34 Pregnanc y, childbir th and puerperi um finding Completed 201803/28/2019 Encounte r for supervis ion of normal first pregnanc y, first trimeste r; Progress : Stable Added By: Gurpreet Rowell Add to Current Problems : NO ProblemS tatus: Resolve Not Available [facility] 2 22:11:24 Lochia finding Completed 201802/13/2021 Encounte r for routine postpart um follow-u p; Progress : Stable Added By: Diya Warner Add to Current Problems : NO ProblemS tatus: Resolve Not Available [facility] 2 22:11:37 Pelvic and perineal pain [id number] Completed 201801/25/2021 Pelvic and perineal pain; Progress : Stable Added By: Kenyatta Bautista Add to Current Problems : NO ProblemS tatus: Resolve Not Available [facility] 2 22:11:11 Threaten ed miscarri age [id number] Completed 202006/17/2021 Threaten ed ; Severity : Moderate Progress : Stable Added By: Willow Watkins Add to Current Problems : YES ProblemS tatus: Current Janna guardado, [facility] IV 12:26:[address] Concept Completed 201902/13/2021 Anxiety disorder , unspecif ied; Progress : Stable Added By: Joni Leger Add to Current Problems : NO ProblemS tatus: Resolve Not Available [facility] 2 22:11:10 Antenata l ultrasou nd finding [id number] Completed 202002/13/2021 Encounte r for pregnanc y test, result unknown; Progress : Stable Added By: Sabiha Mason Add to Current Problems : NO ProblemS tatus: Resolve Not Available [facility] 2 22:12:01 Gestatio n period, 35 weeks [id number] Completed 201802/13/2021 35 weeks gestatio n of pregnanc y; Progress : Stable Added By: Otilia Kapoor Add to Current Problems : NO ProblemS tatus: Resolve Not Available [facility] 2 22:11:38 Gestatio n period, 38 weeks [id number] Completed 201802/13/2021 38 weeks gestatio n of pregnanc y; Progress : Stable Added By: Regan Chilel Add to Current Problems : NO ProblemS tatus: Resolve Not Available [facility] 2 22:12:01 Gestatio n period, 15 weeks [id number] Completed 201803/28/2019 15 weeks gestatio n of pregnanc y; Progress : Stable Added By: Regan Chilel Add to Current Problems : NO ProblemS tatus: Resolve Not Available [facility] 2 22:11:11 Clinical finding Completed 201808/14/2021 state, incident al; Severity : Moderate Progress : Stable Added By: Payton Leal Add to Current Problems : YES ProblemS tatus: Current Sabiha Mason null, [place] - [facility] 3 09:42:43 Acute vaginiti s [id number] Completed 201806/17/2021 Acute vaginiti s; Severity : Moderate Progress : Stable Added By: Willow Watkins Add to Current Problems : YES ProblemS tatus: Current Janna Mason null, [place] - [facility] 1 12:26:21 Dizzines s and giddines s [id number] Completed 201801/25/2021 Dizzines s and giddines s; Progress : Stable Added By: Iris Jo Add to Current Problems : NO ProblemS tatus: Resolve Not Available [facility] 2 22:11:35 Gestatio n less than 9 weeks [id number] Completed 201803/28/2019 Less than 8 weeks gestatio n of pregnanc y; Progress : Stable Added By: Gurpreet Rowell Add to Current Problems : NO ProblemS tatus: Resolve Not Available [facility] 2 22:11:50 Normal pregnanc y in multigra mu [id number] Completed 202008/14/2021 Encounte r for supervis ion of other normal pregnanc y, first trimeste r; Severity : Moderate Progress : Stable Added By: Gurpreet Rowell Add to Current Problems : YES ProblemS tatus: Current Sabiha Mason [facility], [facility] 3 09:42:53 Dysuria [id number] Completed 201902/13/2021 Dysuria; Progress : Stable Added By: Kenyatta Bautista Add to Current Problems : NO ProblemS tatus: Resolve Not Available [facility] 2 22:11:52 Gestatio n period, 36 weeks [id number] Completed 201802/13/2021 36 weeks gestatio n of pregnanc y; Progress : Stable Added By: Adrienne Land Add to Current Problems : NO ProblemS tatus: Resolve Not Available [facility] 2 22:11:18 Postpart um depressi on [id number] Completed 201902/13/2021 Postpart um depressi on; Progress : Stable Added By: Eve Morgan Add to Current Problems : NO ProblemS tatus: Resolve Not Available [facility] 2 22:11:36 Uterine size for dates discrepa ncy Completed 201802/13/2021 Uterine size-sol e discrepa ncy, third trimeste r; Progress : Stable Added By: Mily Arredondo Add to Current Problems : NO ProblemS tatus: Resolve Not Available [facility] 2 22:11:49 Gestatio n period, 8 weeks [id number] Completed 202002/13/2021 8 weeks gestatio n of pregnanc y; Progress : Stable Added By: Bailey Brown Add to Current Problems : NO ProblemS tatus: Resolve Not Available [facility] 2 22:11:37 Gestatio n period, 24 weeks [id number] Completed 201804/29/2021 24 weeks gestatio n of pregnanc y; Progress : Stable Added By: Leila Harding Add to Current Problems : NO ProblemS tatus: Resolve Not Available [facility] 2 22:11:35 Gestatio n period, 37 weeks [id number] Completed 201802/13/2021 37 weeks gestatio n of pregnanc y; Progress : Stable Added By: Dianne Adkins Add to Current Problems : NO ProblemS tatus: Resolve Not Available [facility] 2 22:11:51 Gestatio n period, 33 weeks [id number] Completed 201802/13/2021 33 weeks gestatio n of pregnanc y; Progress : Stable Added By: Payton Leal Add to Current Problems : NO ProblemS tatus: Resolve Not Available [facility] 2 22:11:51 Gestatio n period, 18 weeks [id number] Completed 202008/14/2021 18 weeks gestatio n of pregnanc y; Severity : Moderate Progress : Stable Added By: Willow Watkins Add to Current Problems : YES ProblemS tatus: Current Sabiha guardado, [facility] [facility] 2 09:21:49 Gestatio n period, 16 weeks [id number] Completed 202002/13/2021 16 weeks gestatio n of pregnanc y; Progress : Stable Added By: Betsy Hickman Add to Current Problems : NO ProblemS tatus: Resolve Not Available [facility] 2 22:11:37 Past pregnanc y history of prematur e labor [id number] Completed 08/14/2021 (was on Mag and Procardi a) delivere d at term Sabiha guardado, [facility] 2 09:21:54 Rubella non-immu ne [id number] Completed 08/14/2021 need MMR PP Sabiha Mason null, [place] - [facility] 2 09:21:59 Pregnanc y [id number] Completed 07/15/2021 O-/RNI/N Rx3/ GBS neg IAN Thomas [address] [facility], [place], [address] , [place] [facility] 4 09:05:08 Past pregnanc y history of prematur e labor [id number] Completed (was on Mag and Procardi a) delivere d at term Sabiha Mason null, [place] [facility] 2 10:30:18 Rubella non-immu ne [id number] Completed need MMR PP Sabiha guardado, [place] [facility] 2 10:30:18 Pregnanc y [id number] Completed O-/RNI/N Rx3/ GBS neg Sabiha guardado, [place] [facility] 2 10:30:18 Anxiety [id number] Completed 08/14/2021 History and was off meds, desires meds again, will make apt with therapis t Sabiha Mason null, [place] - [facility] 2 09:21:40 Anxiety [id number] Completed History and was off meds, desires meds again, will make apt with therapis t Sabiha Mason null, [place] - [facility] 2 10:30:18 Blood group O Rh(D) negative [id number] Completed Rhogam at 28 weeks Sabiha guardado, [place] - [facility] 2 10:30:18 Blood group O Rh(D) negative [id number] Completed 08/14/2021 Rhogam at 28 weeks Sabiha Mason null, [place] [facility] 2 09:21:43 Gestatio n period, 26 weeks [id number] Completed 202004/29/2021 26 weeks gestatio n of pregnanc y; Progress : Stable Added By: Janna Mason Add to Current Problems : NO ProblemS tatus: Resolve Not Available [facility] 2 22:11:18 Depressi on screenin g Completed 201802/13/2021 Encounte r for screenin g for maternal depressi on; Progress : Stable Added By: Eve Morgan Add to Current Problems : NO ProblemS tatus: Resolve Not Available [facility] 2 22:11:50 Pregnanc y [id number] Completed 202305/26/2024 IAN Thomas [address] [place] [address], [phone] , [facility] IV 4 09:05:08 Nausea [id number] Completed Reglan ineffect xochilt, Zofran rx'd Melina Forrester MD [address] [place] [address], [phone] , [facility] IV 4 12:44:43 Past pregnanc y history of prematur e labor [id number] Completed Hx of PTL with her son in 2018 starting at 20 weeks She had no PTL issues with the followin g pregnanc y in 2021 Melina Forrester MD [address] [place] [address], [phone] , [facility] 4 12:44:43 Tachycar sallie [id number] Completed Cardiolo gy referral placed IAN Thomas [address] [place] [address], [phone] , [facility] 4 12:17:26 Tachycar sallie [id number] Active Cardiolo gy referral placed IAN Thomas [address] [place] [address], [phone] , [facility] 4 12:17:26 Pregnanc y, childbir th and puerperi um finding Completed 201803/28/2019 Encounte r for supervis ion of normal first pregnanc y, second trimeste r; Progress : Stable Added By: Gurpreet Rowell Add to Current Problems : NO ProblemS tatus: Resolve Not Available [facility] 2 22:12:01 Gestatio n period, 20 weeks [id number] Completed 201808/14/2021 20 weeks gestatio n of pregnanc y; Severity : Moderate Progress : Stable Added By: Leial Harding Add to Current Problems : YES ProblemS tatus: Current Sabiha Mason geo, [place] - [facility] 2 09:21:51 Uses combined oral contrace ption [id number] Completed 201902/13/2021 Encounte r for initial prescrip tion of contrace ptive pills; Progress : Stable Added By: Eve Morgan Add to Current Problems : NO ProblemS tatus: Resolve Not Available [facility] 2 22:11:12 Meghan ry postpart um mood disturba nce [id number] Completed 201902/13/2021 Postpart um mood disturba nce; Progress : Stable Added By: Regan Chilel Add to Current Problems : NO ProblemS tatus: Resolve Not Available [facility] 2 22:11:25 Problem Notes None recorded. Procedures Surgical History Date Name Laterality Status Provider Name and Address Organization Details Recorded Time 03/29/2024 NST completed IAN Thomas [facility] [place], [address], [facility] [employer] [facility] 03/29/2024 16:07:08 03/28/2024 NST completed Melina Forrester MD [address] [place] [address], [phone], [facility] 03/28/2024 12:58:09 02/23/2024 NST completed IAN Thomas [address] [place] [address], [phone], [facility] 02/23/2024 16:24:01 03/09/2023 Date of Last Pap Smear completed Sabiha Mason [facility] 03/09/2023 12:53:03 Imaging Results Imaging Date Name Status LastModified by Organiz ation Details LastModified Time 03/24/2024 US, abdomen, limited completed [email or web address] [address], [place], [address], 03/25/2024 09:34:26 04/04/2024 US, obstetric completed [email or web address] [address], [place], [address], 04/05/2024 22:05:56 04/07/2024 US, obstetric, biophysical profile completed [email or web address] [facility] [address] [facility], [place], [address], 04/07/2024 05:31:13 Procedure Notes None recorded. Medical Equipment None Reported. Allergies Allergen ID Allergen Name Allergen Category Reaction Reaction Severity Criticality Documentation Date Start Date Code Code System Note Provider Name and Address Organization Details Recorded Time 800468 Product containin g penicilli n and antibioti c (product) medicatio n palpitati ons Not available Not available 04/12/20212018 62195 05 SNOMED Sever ity: Moder ate; Not Available Not Available Not Available 157959 Substance with sulfonami de structure and antibacte rial mechanism of action (substanc e) medicatio n hives Not available low 04/12/20212018 11805 8003 SNOMED Sever ity: Moder ate; Not Available Not Available Not Available 140171 Zoloft medicatio n palpitati ons moderate Not available 08/14/2021 41694 RxNorm Not Available Not Available Not Available Medications Name Sig Start Date Stop Date Status Note LastModified by Organization Details LastModified Time cyclobenz aprine 10 mg tablet TAKE 1 TABLET BY MOUTH EVERY 8 HOURS NEEDED 04/04 completed Not Available Not Available Not Available hydrocort isone 0.5 % topical cream apply a thin layer to the affected area(s) by topical route 2 times per day 04/15 completed hydrocor tisone 0.5 % Topical Cream RxNorm: [id number] Allow Substitu tion: True Refill Denied: No Edited by: Janna Ac ) on 04/15/20 Stopped by: Janna Ac ) on 04/15/20 21 Not Available Not Available Not Available promethaz ine-DM 6.25 mg-15 mg/5 mL oral syrup 03/05 completed Not Available Not Available Not Available prednison e 10 mg tablet TAKE 3 TABLETS DAILY FOR 4 DAYS, THEN 2 TABLETS DAILY FOR 4 DAYS, THEN 1 TABLET DAILY FOR 4 DAYS 03/05 completed Not Available Not Available Not Available doxycycli ne hyclate 100 mg capsule 07/06 completed Not Available Not Available Not Available clindamyc in HCl 300 mg capsule TAKE 1 CAPSULE BY MOUTH TWICE DAILY 07/06 completed Not Available Not Available Not Available Apri 0.15 mg-0.03 mg tablet take 1 tablet by oral route once daily 07/04 completed Apri 0.15-0.0 3 mg oral tablet RxNorm: [id number] Allow Substitu tion: True Refill Denied: No Edited by: Regan Perez ) on 07/04/19 Stopped by: Regan Perez ) on 07/04/19 20 Not Available Not Available Not Available cetirizin e 10 mg tablet 05/13 completed Not Available Not Available Not Available azithromy kei 250 mg tablet TAKE 2 TABLETS BY MOUTH ON DAY 1, AND THEN TAKE 1 TABLET BY MOUTH ONCE A DAY ON DAY 2 THROUGH DAY 5 08/27 completed Not Available Not Available Not Available ibuprofen 800 mg tablet 04/28 completed Not Available Not Available Not Available fluconazo le 150 mg tablet TAKE 1 TABLET BY MOUTH 1 TIME FOR 1 DOSE 08/27 completed Not Available Not Available Not Available citalopra m 10 mg tablet TAKE 1 TABLET BY MOUTH DAILY 07/06 completed Not Available Not Available Not Available hydrocodo ne 5 mg-acetam inophen 325 mg tablet TAKE 1 TO 2 TABLETS BY MOUTH EVERY 6 HOURS NEEDED FOR ACUTE PAIN 03/09 completed Not Available Not Available Not Available sucralfat e 1 gram tablet TAKE 1 TABLET BY MOUTH NEEDED 1 HOUR PRIOR TO MEALS 04/04 completed Not Available Not Available Not Available pyridoxin e (vitamin B6) 25 mg tablet 1 tablet 30 minutes before meals and at bedtime 02/13 completed pyridoxi ne (vitamin B6) 25 mg oral tablet RxNorm: [id number] Allow Substitu tion: True Refill Denied: No Edited by: anisha(Barbara Silver ) on 02/14/20 Stopped by: anisha(Barbara Silver ) on 02/14/20 21 Not Available Not Available Not Available famotidin e 40 mg tablet take 1 tablet (40 mg) by oral route 1 times per day 05/13 completed famotidi ne 40 mg oral tablet RxNorm: [id number] Allow Substitu tion: True Refill Denied: No Edited by: Dione Oshea ) on 03/04/20 Stopped by: kolby( Dione Alex ) on Not Available Not Available Not Available prednison e 20 mg tablet TAKE 1 TABLET BY MOUTH ONCE DAILY WITH FOOD 03/05 completed Not Available Not Available Not Available sumatript an 50 mg tablet TAKE ONE TABLET BY MOUTH AT ONSET OF MIGRAINE . IF SYMPTOMS PERSIST, A SECOND DOSE MAY BE TAKEN IN 2 HOURS. DO NOT EXCEED 2 DOSES IN A 24 HOUR PERIOD 03/09 completed Not Available Not Available Not Available metronida zole 500 mg tablet TAKE 1 TABLET BY MOUTH EVERY 12 HOURS WITH MEALS FOR 7 DAYS 12/27 completed Not Available Not Available Not Available ciproflox acin 500 mg tablet TAKE 1 TABLET BY MOUTH EVERY 12 HOURS FOR 10 DAYS 04/28 completed Not Available Not Available Not Available omeprazol e 40 mg capsule,d elayed release 07/15 completed Not Available Not Available Not Available tramadol 50 mg tablet TAKE 1 TO 2 TABLETS BY MOUTH EVERY 6 HOURS NEEDED FOR ACUTE PAIN OR PAIN 04/24 completed Not Available Not Available Not Available acetamino phen 500 mg tablet TAKE 2 TABLET BY MOUTH EVERY 6 HOURS NEEDED 04/28 completed Not Available Not Available Not Available triamcino lone acetonide 0.1 % topical cream APPLY CREAM EXTERNAL LY TO AFFECTED AREA TWICE DAILY 03/09 completed Not Available Not Available Not Available butalbita l-acetami nophen-ca ffeine 50 mg-325 mg-40 mg tablet TAKE 1 TABLET BY MOUTH EVERY 6 HOURS NEEDED FOR HEADACHE 07/15 completed Not Available Not Available Not Available ondansetr on 8 mg disintegr ating tablet Place 1 tablet twice a day by translin gual route. 04/28 completed Not Available Not Available Not Available dexametha sone 0.5 mg/5 mL oral elixir TAKE 5 ML BY MOUTH 4 TIMES DAILY SWISH, GARGLE, AND SWALLOW FOR ONE WEEK 03/09 completed Not Available Not Available Not Available Vitamin tablet Take 1 taablet by mouth daily. May substitu tue for any vitamin covered by her insuranc e.. 04/06 completed Multivit westfall Tablet Allow Substitu tion: True Refill Denied: No Edited by: Bisi Collins) on 02/27/20 Stopped by: anthony(Bisi Rausch) on 04/06/20 19 Not Available Not Available Not Available nystatin- triamcino lone 100,000 unit/gram -0.1 % topical ointment apply to the affected area(s) by topical route 2 times per day 06/17 completed nystatin -triamci nolone 100,000- 0.1 unit/gra m-% Topical Ointment RxNorm: [id number] Allow Substitu tion: True Refill Denied: No Edited by: Rea Pemberton) on 07/04/19 Stopped by: Rea Pemberton) on Not Available Not Available Not Available hydrocort isone 2.5 % topical cream with perineal applicato r INSERT RECTALLY TO THE AFFECTED AREA AT BEDTIME 11/19 completed Not Available Not Available Not Available Deep Sea Nasal 0.65 % spray aerosol USE 1 SPRAY INTO EACH NOSTRIL NEEDED FOR DRY NOSE 12/27 completed Not Available Not Available Not Available famotidin e 20 mg tablet TAKE 2 TABLETS BY MOUTH TWICE DAILY 04/28 completed Not Available Not Available Not Available phenazopy ridine 100 mg tablet TAKE 1 TABLET BY MOUTH THREE TIMES DAILY NEEDED FOR URINARY DISCOMFO RT 11/19 completed Not Available Not Available Not Available cephalexi n 500 mg capsule TAKE 1 CAPSULE BY MOUTH TWICE DAILY FOR 10 DAYS 12/09 completed Not Available Not Available Not Available pantopraz ole 40 mg tablet,de layed release 05/13 completed Not Available Not Available Not Available nystatin 100,000 unit/gram topical cream apply to the affected area(s) by topical route 2 times per day 06/17 completed Not Available Not Available Not Available nystatin- triamcino lone 100,000 unit/g-0. 1 % topical cream APPLY TOPICALL Y TO THE AFFECTED AREA TWICE DAILY IN THE MORNING AND IN THE EVENING 07/15 completed Not Available Not Available Not Available fluoxetin e 10 mg capsule Take 1 capsule every day by oral route. 07/15 completed Not Available Not Available Not Available diclofena c sodium 75 mg tablet,de layed release 05/13 completed Not Available Not Available Not Available monteluka st 10 mg tablet TAKE 1 TABLET BY MOUTH ONCE DAILY 03/09 completed Not Available Not Available Not Available hydroxyzi ne HCl 25 mg tablet TAKE 1 TABLET BY MOUTH THREE TIMES DAILY NEEDED FOR ITCHING 03/09 completed Not Available Not Available Not Available ergocalci ferol (vitamin D2) 1,250 mcg (50,000 unit) capsule TAKE 1 CAPSULE BY MOUTH EVERY 7 DAYS 08/27 completed Not Available Not Available Not Available ibuprofen 600 mg tablet 08/27 completed Not Available Not Available Not Available polyethyl viriglio glycol 3350 17 gram/dose oral powder 05/13 completed Not Available Not Available Not Available methylpre dnisolone 4 mg tablets in a dose pack 05/13 completed Not Available Not Available Not Available ondansetr on 4 mg disintegr ating tablet DISSOLVE ONE TABLET ON TONGUE EVERY 6 HOURS 04/28 completed Not Available Not Available Not Available cefdinir 300 mg capsule TAKE 1 CAPSULE BY MOUTH EVERY 12 HOURS WITH MEALS FOR 10 DAYS 07/06 completed Not Available Not Available Not Available fluticaso ne propionat e 50 mcg/actua tion nasal spray,octavio pension SHAKE LIQUID AND USE 2 SPRAYS IN EACH NOSTRIL EVERY DAY 12/27 completed Not Available Not Available Not Available sertralin e 50 mg tablet take 1 tablet (50 mg) by oral route once daily 07/04 completed sertrali ne 50 mg oral tablet RxNorm: [id number] Allow Substitu tion: True Refill Denied: No Edited by: Regan Perez ) on 07/04/19 20 Stopped by: Regis Perezy ) on 07/04/19 Not Available Not Available Not Available doxycycli ne hyclate 100 mg tablet TAKE 1 TABLET BY MOUTH TWICE DAILY FOR 7 DAYS 08/27 completed Not Available Not Available Not Available naproxen 500 mg tablet TAKE 1 TABLET BY MOUTH TWICE DAILY WITH MEALS 04/24 completed Not Available Not Available Not Available metoclopr amide 10 mg tablet TAKE 1 TABLET BY MOUTH FOUR TIMES DAILY 12/27 completed Not Available Not Available Not Available azithromy kei 1 gram oral packet take 1 packet (1,000 mg) by oral route dissolve d in 2 ounces of wateras a single dose 05/23 completed azithrom ycin 1 gram oral Packet RxNorm: [id number] Allow Substitu tion: False Refill Denied: No Refill DateOccu rred: 04/04/20 Edited by: Iris Baron ) on 05/23/20 Stopped by: Iris Baron ) on 05/23/20 Not Available Not Available Not Available buspirone 15 mg tablet TAKE 1 TABLET BY MOUTH TWICE DAILY 12/27 completed Not Available Not Available Not Available hydroxyzi ne pamoate 25 mg capsule 04/04 completed Not Available Not Available Not Available Depo-Prov era 150 mg/mL intramusc ular syringe inject 1 millilit er (150 mg) by intramus cular route every 3 months 05/13 completed Depo-Pro vera 150 mg/mL intramus cular Syringe RxNorm: [id number] Allow Substitu tion: True Refill Denied: No Edited by: Rea Pemberton) on 07/04/19 Stopped by: Rea Pemberton) on Not Available Not Available Not Available Clotrimaz ole 3 Day 2 % vaginal cream Insert 1 applicat orful every day by vaginal route at bedtime for 3 days. 06/17 completed Not Available Not Available Not Available Sleep Aid (doxylami ne) 25 mg tablet 1 tablet once daily at bedtime as needed. Take with vitamin B6 02/13 completed doxylami ne succinat e 25 mg oral tablet RxNorm: 4372744 Allow Substitu tion: True Refill Denied: No Edited by: anisha(Barbara Silevr ) on 02/14/20 Stopped by: anisha(Barbara Silver ) on 02/14/20 Not Available Not Available Not Available nitrofura ntoin monohydra te/macroc rystals 100 mg capsule TAKE 1 CAPSULE BY MOUTH EVERY 12 HOURS FOR 7 DAYS 08/27 completed Not Available Not Available Not Available Zofran 05/23 completed Zofran RxNorm: 64231 Allow Substitu tion: False Refill Denied: No Refill DateOccu rred: 04/04/20 Edited by: Iris Baron ) on 05/23/20 Stopped by: Iris Baron ) on 05/23/20 Not Available Not Available Not Available cranberry pill daily 02/13 completed cranberr y RxNorm: 195043 Allow Substitu tion: False Refill Denied: No Refill DateOccu rred: 12/01/19 Edited by: anisha(Barbara Silver ) on 02/14/20 Stopped by: anisha(Barbara Silver ) on 02/14/20 Not Available Not Available Not Available Keflex 07/04 completed Keflex RxNorm: 134992 Allow Substitu tion: False Refill Denied: No Refill DateOccu rred: 05/23/20 Edited by: nadine peralta(Regan Corado ) on 07/04/19 20 Stopped by: nadine peralta(Regan Corado ) on 07/04/19 20 Not Available Not Available Not Available Prozac 11/21 completed PROzac RxNorm: 81728 Allow Substitu tion: False Refill Denied: No Refill DateOccu rred: 09/19/19 21 Edited by: estephania herbert(Thornt on, Jacqueline ) on 11/22/19 21 Stopped by: estephania herbert(Thornt on, Jacqueline ) on 11/22/19 21 Not Available Not Available Not Available nifedipin e 05/23 completed NIFEdipi ne RxNorm: 529125 Allow Substitu tion: False Refill Denied: No Refill DateOccu rred: 03/14/20 19 Edited by: Iris Baron ) on 05/23/20 19 Stopped by: Iris Baron ) on 05/23/20 19 Not Available Not Available Not Available 12/09 completed Not Available Not Available Not Available Miralax 03/04 completed Miralax RxNorm: 646942 Allow Substitu tion: False Refill Denied: No Refill DateOccu rred: 02/14/20 21 Edited by: Leila Dawn ) on 03/04/20 21 Stopped by: Leila Dawn ) on 03/04/20 21 Not Available Not Available Not Available cholecalc iferol (vitamin D3) 1,250 mcg (50,000 unit) capsule Take 1 capsule every week by oral route, for 6 months. active Not Available Not Available No t Available doxylamin e succinate 1/2 tab po tid prn nausea 11/28 completed Doxylami ne Succinat e 25mg Tablet Allow Substitu tion: True Refill Denied: No Not Available Not Available Not Available + DHA active Not Available Not Available Not Available Fioricet 50 mg-300 mg-40 mg capsule Take 1 capsule every 6 hours by oral route as needed. 07/15 completed Not Available Not Available Not Available Slynd 4 mg (28) tablet TAKE 1 TABLET BY MOUTH EVERY DAY 03/09 completed Not Available Not Available Not Available Vitals Date Recorded Body height Body mass index (BMI) Body weight Systolic blood pressure Diastolic blood pressure Provider Name and Address Organization Details Last Updated DateTime 03/29/2024 154.94 cm 27.6 kg/m2 86873.49 g 132 mm[Hg] 80 mm[Hg] [facility] [employer] [facility] 16:27:43 Date Recorded Body weight Body height Systolic blood pressure Diastolic blood pressure Provider Name and Address Organization Details Last Updated DateTime 04/01/2024 40675.670 76 g 154.94 cm 140 mm[Hg] 80 mm[Hg] [facility] [employer] [facility] 04/01/2024 11:12:46 Date Recorded Body height Body weight Systolic blood pressure Diastolic blood pressure Provider Name and Address Organization Details Last Updated DateTime 04/04/2024 154.94 cm 56638.67 076 g 112 mm[Hg] 80 mm[Hg] Latoya Jarocho [place] [employer] [facility] 13:30:50 Date Recorded Body height Body mass index (BMI) Body weight Systolic blood pressure Diastolic blood pressure Provider Name and Address Organization Details Last Updated DateTime 04/28/2024 154.94 cm 25.5 kg/m2 36412.97 g 118 mm[Hg] 80 mm[Hg] Sabiha [facility] [employer] [facility] 14:21:43 Date Recorded Body height Body mass index (BMI) Body weight Provider Name and Address Organization Details Last Updated DateTime 07/06/2024 154.94 cm 25.5 kg/m2 32737.97 g Sabiha [facility] [employer] [facility] 07/06/2024 09:53:48 Date Recorded Systolic blood pressure Diastolic blood pressure Provider Name and Address Organization Details Last Updated DateTime 07/06/2024 122 mm[Hg] 76 mm[Hg] Megan Alston, [facility] [address] [place], [address], [place] [employer] [facility] 07/06/2024 11:06:39 Social History Question Answer Notes LastModified by Organizat ion Details LastModified Time Tobacco Smoking Status Never Smoker Ines guardado, [place] [employer] [facility] 05/13/2021 11:22:52 What Is Your Level Of Alcohol Consumption? None Information not available 05/13/2021 Are You Blind Or Do You Have Difficulty Seeing? No [email or web address] Information not available 04/08/2023 Are You Currently Employed? Yes [email or web address] Information not available 04/24/2023 Are You Deaf Or Do You Have Serious Difficulty Hearing? No [email or web address] Information not available 04/08/2023 What Type Of Diet Are You Following? REGULAR [email or web address] Information not available 02/06/2022 Do You Or Have You Ever Used E-cigarettes Or Vape? Never Used Electronic Cigarettes [email or web address] Information not available 02/06/2022 How Many Children Do You Have? 2 [email or web address] Information not available 02/06/2022 Are There Any Occupational Health Risks Where You Work? No [email or web address] Information not available 04/24/2023 What Is Your Relationship Status? Information not available 05/13/2021 Are You Sexually Active? Yes Information not available 05/13/2021 Do You Use Any Illicit Or Recreational Drugs? No Information not available 05/13/2021 Sex: Female Functional Status Question Answer Note LastModified by Organizat ion Details LastModified Time What is your exercise level? Occasional Information not available 05/13/2021 Mental Status None recorded. Family History Relationship Description Onset Age of this Age Resolved Age Notes LastModified by Organization Details LastModified Time Paternal Grandmother Malignant tumor of breast [email or web address] Not available 02/06 12:49:54 Paternal Aunt Malignant tumor of breast [email or web address] Not available 2022 12:31:59 Paternal Grandfather Heart disease [email or web address] Not available 02/06 12:49:54 Maternal Grandmother Malignant tumor of breast [email or web address] Not available 02/06 12:49:54 Maternal Grandmother Cerebrovascu lar accident [email or web address] Not available 12:49:54 Maternal Grandmother Heart disease [email or web address] Not available 02/06 12:49:54 Mother Malignant neoplastic disease [email or web address] Not available 02/06 12:49:54 Mother Irritable bowel syndrome [email or web address] Not available 02/06 12:49:54 Mother Gastric ulcer [email or web address] Not available 02/06 12:49:54 Mother Cerebrovascu lar accident [email or web address] Not available 12:49:54 Sister Hypothyroidi sm [email or web address] Not available 02/06 12:49:54 Medical History Condition Response Other Cancer N High Blood Pressure N Colon Cancer N Cytomegalovirus N Hyperthyroidism N MRSA N Blood Transfusion N Herpes (HSV) N Breast Cancer N Lung Cancer N Depression N Hypothyroidism N Incontinence N Panic Attacks N Neurological Disorder N Deep Vein Thrombosis N Anxiety Disorder Y Autoimmune disease N Arthritis N Tuberculosis/Positive PPD N Shingles N Polycystic Ovarian Syndrome N Infertility N Cervical Cancer N Chlamydia N Hematuria N Stroke N Varicosities N Crohn's Disease N Seasonal allergies N Alzheimer's/Dementia N COPD/Emphysema N HPV/Genital Warts N Endometriosis N IBS (Irritable Bowel Syndrome) N History of Abnormal Pap N High Cholesterol N Liver Disease N Kidney Infection N Fibromyalgia N Ulcer N Kidney Disease N HIV N Gallbladder disease N Sickle Cell Disease/Trait N Von Willebrand disease N ADD/ADHD N Eating Disorder N Anemia N Diabetes Mellitus (non-insulin dependent ) N Ovarian Problems N Multiple Sclerosis N Gonorrhea N Frequent Urinary Tract infections N Osteopenia N Headaches/migraines N GERD (reflux) Y Ovarian Cancer N Diabetes (insulin dependent) N Seizures/Epilepsy N Breast Problems N Fibroids N Heart Attack N Asthma N Lupus N Endometrial Cancer N Rubella N Blood Clotting Disorder N Bipolar Disorder N Diabetes Mellitus (during ) N Ulcerative Colitis N Hepatitis N Heart Disease N Pulmonary Embolism N RPR N Chicken Pox N Osteoporosis N Gynecological History Statement/Question Response Flow Light Frequency of Cycle (Q days) 28 Date of LMP 07/06/2024 HPV Vaccine N Date of Last Pap Smear 03/09/2023 Duration of Flow (days) 2 Most Recent Mammogram Current Control Method Condoms Age at Menarche 10 Obstetrics History GPAL:G 4 P 3 0 1 3 Type Value Multiple Births 0 Full Term 3 Induced 0 Spontaneous 1 Premature 0 Living 3 Ectopics 0 Total 4 Past Encounters Encounter ID Performer Location Encounter Start Date Encounter Closed Date Diagnosis/Indication Diagnosis SNOMED-CT Code Diagnosis ICD10 Code Diagnosis Note [id number] Dione tobias, [facility] [address] [place] [address] 05/13/2021 10:38:56 05/13/2021 14:25:02 Anxiety 50370130 F41.9 [id number] ANTHONY FAUSTO LIZELL, [facility] [address] [place] [address] 05/30/2021 15:35:57 05/30/2021 17:43:37 Uterine size for dates discrepancy 703199817 O26.849 growth, and 4d Multigravida 392327329 Z 34.83 Gestation period, 34 weeks 73740893 Z3A.34 [id number] Mily Arredondo [facility] [address] [place] [address] 06/10/2021 13:09:52 06/25/2021 14:42:59 Low back pain in 8936733371 106 O26.899 Noninflamm atory disorder of the vagina 43879933 N89.9 Routine an tenatal care 382470724 O09.93 1. IUP FWB reassuring by + FHT on BSUS. Aneuploidy screening: Penta WNL. Anatomy Scan: Complete2. O-/RNI/NRx 4. No pap on file; plan post collection . GTT 124.3. H/O PTL - on MgSO4 and Procardia with 1st . Delivered at 38 wks .4. Rh Negative - Plan to ask if received Rhogam at 28 wks.5. VZV NI - plan for post Varicella vaccine.6. RNI - plan for MMR vaccine post .7. LLP - resolved as of 04/29/21.8. Abnormal TFT's - TSH on intake 0.10, FT4 WNL. No further serum testing noted in eMD's or Cinthya noted as of 06/10/21 after pt left office for L&D. Please repeat TFT's at next OBV9. H/O Anxiety - As of 06/10/21 Citalopram 10 mg, Fluoxetine 10 mg, and Hydroxyzin e 25 mg on med list. Please confirm which meds pt taking and complete EPDS at next OBV.10. S10. C/O CTX, Back Pain, Rash, LOF, Decreased FM, AREVALO - noted on add on OBV on 06/10/21. Rash noted near umbilicus c/w PUPPPS. Pt denies any change in soaps/dete rgents or recent outdoor exposure. Plan to use OTC Hydrocorti sone and Benedryl PRN. SSE reveals copious white d/c; no blood or fluid before or after valsalva. Fern negative. SVE: 1/thick/so ft/posteri or/high. Rx for Flexeril and Metrogel sent d/t exam findings. Pt denies visual changes, but notes AREVALO with little relief from OTC Tylenol ES q4 hours. BP in office 140/62 & 140/60. Pt sent to L&D for further evaluation . Ambrocio Morgan MD notified of pt's impending arrival.11 . Delivery Plans:12. PP Contracept ion Plans: Follow up in 1 week. [id number] Melina Forrester MD [address] [address] 06/17/2021 11:58:50 06/17/2021 14:16:47 Headache 67783865 R51.9 headache in 36 wk female with neg protein and no swelling. Disc Pre ecl precaution s. May be migraine type, so will try fioricet. To hospital for any unrelieved headaches. Has appt in 2 d with andriy Parham to keep. Monitor BP closely [id number] Dione tobias, [facility] [address] [address] 06/19/2021 15:28:15 2021 15:06:29 Routine care 110669925 Z34.93 Vaginal swab taken 66694 3009 Z75.2 [id number] FRANCISCO ARGUELLO CNM [address] [address] 06/25/2021 14:46:20 06/25/2021 20:05:29 Pruritus of vulva 93943017 L29.2 complaints of intense itching of vulva, exam negative for rash or lesions. RX sent for itch relief. Gestation period, 37 weeks 94280326 Z3A.37 IUP @ 37+ wks. complaints of irregular contractio ns over the last few weeks. increasing in frequency and strength over the last few days. SVE today , anterior, soft. Denies VB,LOF, AREVALO. Reports +FM. FWB reassuring per bedside US. Labor precaution s reviewed. RTO 1 wk or present to hospital if labor begins. [id number] Dione tobias, [facility] [address] [address] 2021 11:16:48 07/22/2021 14:32:32 Reduced movement 225951604 O36.8199 [id number] IAN Thomas [address] [address] 07/04/2021 13:52:40 07/04/2021 14:20:30 Routine care 870284176 Z34.83 Reduced fe joslyn movement 387466302 O36.8199 [id number] IAN Thomas [address] [address] 07/15/2021 10:25:34 07/15/2021 10:50:42 state 42279381 Z39.2 Initial pr escription of oral contraception 959911957 Z30.011 Discussed all risks/bene fits of Slyd use. [id number] AUBRIE ThomasZAHIRA [address] [address] 08/14/2021 09:16:30 08/14/2021 09:46:42 Gynecologic examination 02344734 Z01.419 Screening for malignant neoplasm of cervix 895710508 Z12.4 Surveillan ce of contraception 015897250 Z30.40 Urinary tr act infectious disease 28467964 N39.0 depression 58 290421 F53.0 Will schedule telemedici ne visit with Joni Parisi to develop plan of care [id number] AUBRIE ThomasZAHIRA [address] [address] 03/09/2023 12:41:21 03/09/2023 13:04:44 Gynecologic examination 83829052 Z01.419 22y.o. here for annual exam.- Pap today- RTO PRN or annual Screening for malignant neoplasm of cervix 992574122 Z12.4 ASCCP guidelines reviewed with pt. Pap collected and sent. Further POC pending lab result review. Pt states understand ing of POC. Irregular periods 864231 07 N92.6 Pelvic exam wnl. Will have labs and pelvic ultrasound performed and develop further plan of care depending on results High risk sexual behavior 830908110 Z72.51 Hx of abnormal pap in 2020 Depression screening 171 537728 Z13.31 PHQ9: Negative. Pt educated on normal scoring. No further management needed. [id number] Megan AlstonIAN [address] [address] 03/25/2023 14:56:52 03/25/2023 15:28:12 Irregular periods 53284212 N92.6 Discussed pelvic u/s findings with patientPat ient is experienci ng dull LLQ painWill consult with Dr. Lynn to discuss ultrasound findings and plan of careRecent normal irregular menses labs Acute pelvic pain 489412 005 R10.2 [id number] IAN Thomas [address] [address] 04/08/2023 11:53:47 04/08/2023 12:38:32 Dysuria 82398179 R30.0 Will send for urine cx Acute pelvic pain 123056 005 R10.2 Discussed pelvic u/s results with Dr. Forrester and patient. Due to nausea and LLQ pain that is radiating to her back send patient to [facility] for further evaluation Nausea 449092000 R11.0 [id number] IAN Thomas [address] [address] 04/24/2023 12:31:58 04/24/2023 13:50:30 Dysuria 25275403 R30.0 Discussed all measures to avoid UTI's. Delay when starting to pass urine 5726720 R39.11 History of recurrent urinary tract infection 732428093 Z87.440 Due to frequency of UTI's, will refer to Urologist [id number] IAN Thomas [address] [address] 08/28/2023 11:21:48 08/28/2023 11:54:07 Amenorrhea 43691040 N91.0 N91.1 Z32.00 Nausea 985507179 R11.0 test positive 228667659 Z32.01 UPT in office is positive. Pt educated on dietary recommenda tions, to take PNV daily, on Threatened Ab precaution s, and when to notify HCP/go to ER. Plan to F/U in 1-2 weeks for NOB visit.BSUS with IUP noted. Unable to determine viability d/t early gestationa l age [id number] IAN Thomas [address] [address] 09/07/2023 09:35:48 09/07/2023 10:21:31 Routine care 203757929 Z34.81 Nausea 858984233 R11.0 [id number] AUBRIE ThomasZAHIRA [address] [address] 09/30/2023 10:37:36 09/30/2023 13:33:21 screening 370084208 Z36.89 Routine an tenatal care 944188932 Z34.82 [id number] Melina Forrester MD [address] [address] 10/26/2023 11:38:57 10/27/2023 08:29:00 Gestation period, 15 weeks 6364453 Z3A.15 Normal 0185100 2 Z34.82 progressin g well in . RTC 4 - 5wk for anatomy scan and cervical length Screening for disorder 747454350 Z36.0 will return for msafp draw next week, when 16 wks Gastroesop hageal reflux disease without esophagitis 667119209 K21.9 discussed acid reflux in , start pepcid [id number] IAN Thomas [address] [address] 11/12/2023 12:43:34 11/12/2023 13:26:26 Normal 07706967 Z34.82 Additional diagnosis detail: Encounter for supervisio n of other normal , second trimester Gestation period, 17 weeks 88510506 Z3A.17 Additional diagnosis detail: 17 weeks gestation of Anxiety 11585722 F41.9 [id number] IAN Thomas [address] [address] 11/20/2023 10:31:08 11/20/2023 10:59:00 04772539 Z33.1 Increased frequency of urination 253116606 R35.0 Additional diagnosis detail: Urinary frequency Gestation period, 19 weeks 30932247 Z3A.19 Additional diagnosis detail: 19 weeks gestation of [id number] Melina Forrester MD [address] [place] [address] 11/30/2023 13:55:50 12/14/2023 13:44:05 Multigravida 376434779 Z34.82 Additional diagnosis detail: Multigravi da in second trimester Gestation period, 20 weeks 01258637 Z3A.20 anatomy scan incomplete today. Recheck next visit - will do in [facility] diagnosis detail: 20 weeks gestation of Patient en counter status 290938437 Z36.3 Additional diagnosis detail: Encounter for screening for malformati ons [id number] IAN Thomas [address] [address] 12/11/2023 09:47:59 12/11/2023 10:05:01 Normal 71791273 Z34.82 Additional diagnosis detail: Encounter for supervisio n of other normal , second trimester Gestation period, 22 weeks 23866756 Z3A.22 Additional diagnosis detail: 22 weeks gestation of Bacterial vaginosis 4197 52996 N76.0 B96.89 - Reviewed vulvar hygiene: avoid tight or moist clothing, soaps, Vagisil and other wipes, cotton underwear only and sleep without, unscented detergent - RTO for annual or as needed Past pregn jan history of premature labor 444124621 Z87.51 Hx of PTL starting at 20 weeks with first pregnancyU rine dip negativeCe rvix closedBV on wet mountPatie nt sent to [facility] Cramp in lower limb 4499 03278 O99.891 R25.2 Additional diagnosis detail: Cramps of lower extremity during Vaginitis 42073985 N76.0 [id number] DEANGELO MONTANO, [facility] [address] [place] [address] 12/28/2023 13:44:14 12/28/2023 16:25:32 anatomy study 528996987 Z36.2 Additional diagnosis detail: Encounter for follow-up ultrasound of anatomy Normal 4964585 2 Z34.82 Additional diagnosis detail: Encounter for supervisio n of other normal , second trimester Past pregn jan history of premature labor 672006279 Z87.51 Gestation period, 24 weeks 532026672 Z3A.24 Additional diagnosis detail: 24 weeks gestation of [id number] IAN Thomas [address] [address] 01/08/2024 15:43:50 01/08/2024 16:08:20 Normal 99870062 Z34.82 Additional diagnosis detail: Encounter for supervisio n of other normal , second trimester Gestation period, 26 weeks 17762414 Z3A.26 Additional diagnosis detail: 26 weeks gestation of False labo r before 37 completed weeks of gestation 3476211754 1343728 O47.00 Additional diagnosis detail: Threatened labor, antepartum Delay when starting to pass urine 2094026 R39.11 Additional diagnosis detail: Urinary hesitancy [id number] IAN Thomas [address] [address] 01/26/2024 10:26:38 01/26/2024 10:42:08 Normal 34672466 Z34.93 Additional diagnosis detail: Normal in third trimester Gestation period, 28 weeks 56933047 Z3A.28 Additional diagnosis detail: 28 weeks gestation of screening 2437 30947 Z36.89 [id number] IAN Thomas [address] [address] 02/09/2024 10:00:27 02/09/2024 10:20:34 Normal 61439131 Z34.93 Additional diagnosis detail: Normal in third trimester Gestation period, 30 weeks 14632118 Z3A.30 [id number] IAN Thomas [address] [address] 02/24/2024 09:55:04 02/24/2024 11:23:12 Normal 35361915 Z34.93 Additional diagnosis detail: Normal in third trimester Gestation period, 32 weeks 8889391 Z3A.32 [id number] IAN Thomas [address] [address] 02/23/2024 10:01:48 02/23/2024 11:22:26 Increased frequency of urination 051916643 R35.0 Urine cx sent d/t frequent of UTI's Tachycardia 6090114 R00. 0 Heart rate/rhyth m regular. Stat Cardiology referral place Fever 374515868 R50.9 Intermitte nt fever. CBC today Normal 6036592 2 Z34.83 Additional diagnosis detail: Normal in third trimester Gestation period, 32 weeks 4807534 Z3A.32 [id number] AIN Thomas [place] [address] 03/09/2024 10:25:45 03/09/2024 10:40:05 Normal 73487112 Z34.83 Additional diagnosis detail: Normal in third trimester Gestation period, 34 weeks 78167882 Z3A.34 [id number] Melina Forrester MD [place] [address] 03/22/2024 10:31:45 03/24/2024 00:41:33 Multigravida 295108106 Z34.83 Additional diagnosis detail: Multigravi da in second trimester Gestation period, 36 weeks 85483402 Z3A.36 Bacterial disease screening 580415148 Z36.85 GBS done [id number] Melina Forrester MD [place] [address] 03/28/2024 11:01:25 05/04/2024 13:21:24 Multigravida 609424984 Z34.83 Additional diagnosis detail: Multigravi da in second trimester Gestation period, 37 weeks 99774286 Z3A.37 Reduced fe joslyn movement 533875071 O36.8130 NST reactive today [id number] IAN Thomas [place] [address] 03/29/2024 15:53:26 03/29/2024 16:56:04 Normal 56714130 Z34.83 Additional diagnosis detail: Normal in third trimester Gestation period, 37 weeks 17889387 Z3A.37 [id number] IAN Thomas [place] [address] 04/01/2024 10:59:50 04/01/2024 13:57:12 Normal 02367032 Z34.83 Additional diagnosis detail: Normal in third trimester Gestation period, 38 weeks 13364559 Z3A.38 Long durat ion of labor 469133084 O63.9 [id number] Melina Forrester MD [place] [address] 04/04/2024 12:18:49 04/07/2024 14:56:01 Gestation period, 38 weeks 14366642 Z3A.38 Multigravida 979323440 Z 34.83 cervical exam remains unchanged from last checkInter mittent contractio nslabor precaution sInduce at 39wk if undelivere d Reduced fe joslyn movement 577657309 O36.8190 notes decreased movement at times, BPP 01/27 [id number] IAN Thomas [address] [address] 04/28/2024 13:58:03 04/28/2024 15:01:23 state 06634443 Z39.2 Pt educated on avoidance of vigorous exercise, lifting anything heavier than infant, and sexual activity. Plan to F/U in 4 weeks for post visit. Depression screening 171 487469 Z13.31 See Screening Section for EPDS Questionna ashley Result Anxiety 28685064 F41.9 Patient has been on Citalopram in the past and did well on itSide effects discussedD enies SI/HI History of urinary tract infection 0044727638 107 Z87.440 Dennis hematuria 77880858 5 R31.0 [id number] IAN Thomas [address] [address] 07/06/2024 09:47:59 07/06/2024 10:17:18 Gynecologic examination 46343920 Z01.419 24y.o. here for annual exam.- Pap UTD- RTO PRN or annual Depression screening 171 380410 Z13.31 See depression intake screening toolPHQ9: Negative. Pt educated on normal scoring. No further management needed. Screening for malignant neoplasm of breast 489281173 Z12.39 Client advised to perform self-breas t exams and report any changes. Fatigue 62669227 R53.83 Labs drawn. Will develop further plan of care depending on results Health Concerns Section Related Observation LastModified by Organization Detai ls LastModified Time None Recorded Concern Status LastModified by Organization Details LastModified Time None Recorded Advance Directives Directive None Recorded Payers Encounter Date Sequence Insurance Name Policy Number Policy Brennan Covered Member ID Brennan Member ID Guarantor Name 03/29/2024 1 [place] [id number] Todd Clarke [id number] Elly Clarke 03/29/2024 2 [place] [employer] Elly Clarke [id number] Elly Clarke 04/01/2024 1 [place] [id number] Todd Clarke [id number] Elly Clarke 04/01/2024 2 [place] Elly Clarke [id number] Elly Clarke 04/04/2024 1 [place] [id number] Todd Clarke [id number] Elly Clarke 04/04/2024 2 [place] Elly Clarke [id number] Elly Clarke 04/28/2024 1 [place] [id number] Todd Clarke [id number] Elly Clarke 04/28/2024 2 [place] Elly Clarke [id number] Elly Clarke 07/06/2024 1 [place] [id number] Todd Clarke [id number] Elly Clarke 07/06/2024 2 [place] Elly Clarke [id number] Elly Clarke Notes Date Note Type Note Provider Name and Address Organization Details Recorded Time 03/29/2024 text/html Elly is a 23 yr old who presents for 37/4 wk OBV. She was seen in labor and delivery 03/28 due to concern for membrane rupture, but her ROM plus test was negative. She was 3 cm dilated.Elly states that she is having contractions, low back pain, no spotting. IAN Thomas [address] [place], [address], [facility] [employer] IV 03/29/2024 16:55:59 04/01/2024 text/html Elly is a 23 yr old who presents for 38.0 wk OBV. She was seen in labor and delivery 03/29 due to concern for membrane rupture, but her ROM plus test was negative. She was 4 cm dilated, however, another provider told her she was only 2cm. She was discharged last nightKayla states that she is having contractions, low back pain, no spotting. IAN Thomas [address] [facility], [place], [address], [facility] [employer] IV 04/01/2024 14:08:54 04/04/2024 text/html Patient is here for a follow up on her recent hospital visit at [facility]. Patient states she is still having severe cramping yesterday and today. Patient states her contractions are 5-8 min apart. Melina Forrester MD [address] [place], [address], [facility] [employer] IV 04/07/2024 05:33:08 04/28/2024 text/html VisitReported bypatient.Associate d Symptoms:no abnormal bleeding; no vaginal discharge; no pelvic pain; laceration well healed; no constipation; no fecal incontinence; no dysuria; no urinary incontinence; no fever; no problems; no mastitis; normal mood Elly is here for 3 week post follow upShe is experienced increased anxiety and worryShe had post depression with her sonShe denies SI/HIShe is bottle feedingShe was hospitalized 04/13/24 for UTI IAN Thomas [address] [facility], [place], [address], [employer] IV 04/28/2024 14:55:31 07/06/2024 text/html Annual GYNReport ed bypatient.Menstrual cycle:Normal menses Urinary symptoms:No hematuria; No incontinence Vulva:No genital lesion Vagina:Normal vaginal discharge Breast:No breast pain; No breast lump; No nipple discharge Sexual complaints:No sexual complaints; No pain during intercourse; Normal libido Menopausal Symptoms:No menopausal symptoms; Normal vaginal lubrication Psychological symptoms:No depression; No anxiety; No PMDD Elly is here for her AEXHer LMP was 07/06/24Her last pap was 03/09/23 Bernard is using condoms for BCM. Her partner is planning vasectomyShe complains of fatigue on a daily basis. She has a hx of anemia, as well as Vit D and Vit B12 deficiency Megan Gamaliel, IAN [address] [facility], [place], [address], [facility] [employer] 07/06/2024 11:09:07 OBGyn Episode Ob Episode Information Episode Created Date Number of Fetuses Patient Bloodtype Patient rh Status Prepregnancy Weight lbs Domestic Partner Domestic Partner Phone Father Name Calender Operator Helper Status 05/10/20 21 1 CLOSED Fetus Data First Name Last Name Admitted to NICU Weight (g) Sex Living Outcome Pediatric Complications Fetus ID Race Codes Race Delivery Type 2891.64 9 M Full Term [id number] Orlin Calculation Initial Orlin Date Initial Exam Date Initial Exam Provider Initial Ultrasound Date Last Menstrual Period Date Ultra Sound Weeks Gestation 0 Eighteen To Twenty Week Orlin Update Ultra Sound Date Fundal Height At Umbil Quickening Date Ultra Sound Latest Weeks Gestation Final Orlin Confirmed By Final Orlin Confirmed Date Final Orlin Date Ultra Sound Latest Days Gestation 0 0 Menstrual History Last Menstrual Date Menses Monthly On Bcp Conception Prior Menses Frequency Hcg Plus Date Menarche Onset Age Delivery Information Delivery Date Delivery Type Labor Anesthesia Weeks Gestation Incision Type Labor Labor Length Hrs Delivered By Post Complications Tubal Sterilization Discharge Date Comments 9 38.3 PTL; on MgSO4 and Procardia during . Discharge Information Feeding Method Contraceptive Method Maternal HG B and HCT Levels Ob Episode Information Episode Created Date Number of Fetuses Patient Bloodtype Patient rh Status Prepregnancy Weight lbs Domestic Partner Domestic Partner Phone Father Name Calender Operator Helper Status 05/10/20 21 1 O Negative CLOSED Fetus Data First Name Last Name Admitted to NICU Weight (g) Sex Living Outcome Pediatric Complications Fetus ID Race Codes Race Delivery Type 2863.29 95 F Full Term [id number] Problems Problem Notes 06-30-21 N/V/D and kid was sic k iv fluids and zofran and nst reactive at st es1. IUP FWB reassuring by + FHT on BSUS. Aneuploidy screening: Penta WNL. Anatomy Scan: Complete2. O-/RNI/NRx4. No pap on file; plan post collection. GTT 124. 3. H/O PTL - on MgSO4 and Procardia with 1st . Delivered at 38 wks . 4. Rh Negative - Plan to ask if received Rhogam at 28 wks.5. VZV NI - plan for post Varicella vaccine.6. RNI - plan for MMR vaccine post . 7. LLP - resolved as of 04/29/21.8. Abnormal TFT's - TSH on intake 0.10, FT4 WNL. No further serum testing noted in eMD's or Cinthya noted as of 06/10/21 after pt left office for L&D. Please repeat TFT's at next OBV9. H/O Anxiety - As of 06/10/21 Citalopram 10 mg, Fluoxetine 10 mg, and Hydroxyzine 25 mg on med list. Please confirm which meds pt taking and complete EPDS at next OBV. 10. S<D - noted on 06/10/21. U/S 05/30/21 42.9%. Pt going to L&D; discussed with Ambrocio Morgan MD about INDIRA d/t c/o LOF and S<D. 10. C/O CTX, Back Pain, Rash, LOF, Decreased FM, AREVALO - noted on add on OBV on 06/10/21. Rash noted near umbilicus c/w PUPPPS. Pt denies any change in soaps/detergents or recent outdoor exposure. Plan to use OTC Hydrocortisone and Benedryl PRN. SSE reveals copious white d/c; no blood or fluid before or after valsalva. Fern negative. SVE: 1/thick/soft/posterior/high. Rx for Flexeril and Metrogel sent d/t exam findings. Pt denies visual changes, but notes AREVALO with little relief from OTC Tylenol ES q4 hours. BP in office 140/62 & 140/60. Pt sent to L&D for further evaluation. Ambrocio Morgan MD notified of pt's impending arrival. 11. Delivery Plans: st E eIOL Wednesday 07/12 @ [id number]. PP Contraception Plans: Problem Name Start Date End Date Resolution Snomed Code Not e Anxiety 17775374 History an d was off meds, desires meds again, will make apt with therapist Past history of premature labor 201033369 (was on Mag and Procardia)delivered at term Rubella non-immune [id number] n eed MMR PP [id number] O-/RNI/NRx 3/ GBS neg Blood group O Rh(D) negative [id number] Rhogam at 28 we eks Orlin Calculation Initial Orlin Date Initial Exam Date Initial Exam Provider Initial Ultrasound Date Last Menstrual Period Date Ultra Sound Weeks Gestation 07/11/2021 05/10/2021 11/21/2020 10/04/2020 6 Eighteen To Twenty Week Orlin Update Ultra Sound Date Fundal Height At Umbil Quickening Date Ultra Sound Latest Weeks Gestation Final Orlin Confirmed By Final Orlin Confirmed Date Final Orlin Date Ultra Sound Latest Days Gestation 0 lduffe 06/25/2021 07/11/19 22 0 Pre- Flowsheet Flowsheet Date 05/13/2021 Bolton Score Blood Edema Fundus Height Fundus Units Glucose Ketones Leukocytes Nitrite Labor Signs Protein Cervic Dilation Cervic Effacement Cervic Station none 29 none Type Weight in lbs Pre/Post Dialysis Refused Weight 127.089031046127 BP Diastolic BP Location Tested BP Systolic BP Type 62 112 Fetus Heart Rate Present A 137 Fetus Movement A Yes Comments Flowsheet Date 05/30/2021 Bolton Score Blood Edema Fundus Height Fundus Units Glucose Ketones Leukocytes Nitrite Labor Signs Protein Cervic Dilation Cervic Effacement Cervic Station none 31 none none neg Type Weight in lbs Pre/Post Dialysis Refused Weight 132.011738145183 BP Diastolic BP Location Tested BP Systolic BP Type 72 120 Fetus Heart Rate Present A 148 Present Fetus Movement A No Comments S<D add on growth to 4DUS to day. PTL and pre-e SS reviewed. FU 36 weeks for GBS and NEERU. FKC reviewed. Flowsheet Date 06/10/2021 Bolton Score Blood Edema Fundus Height Fundus Units Glucose Ketones Leukocytes Nitrite Labor Signs Protein Cervic Dilation Cervic Effacement Cervic Station none 31 Cramping 1cm 0% - 4 Type Weight in lbs Pre/Post Dialysis Refused Weight 133.418206542404 BP Diastolic BP Location Tested BP Systolic BP Type 62 140 60 140 Fetus Heart Rate Present A 146 Present Fetus Movement A Decreased Comments Flowsheet Date 06/17/2021 Bolton Score Blood Edema Fundus Height Fundus Units Glucose Ketones Leukocytes Nitrite Labor Signs Protein Cervic Dilation Cervic Effacement Cervic Station none trace Type Weight in lbs Pre/Post Dialysis Refused With clothes 133.013342445348 BP Diastolic BP Location Tested BP Systolic BP Type 78 R arm 132 sitting Fetus Heart Rate Present Fetus Movement Comments Flowsheet Date 06/19/2021 Bolton Score Blood Edema Fundus Height Fundus Units Glucose Ketones Leukocytes Nitrite Labor Signs Protein Cervic Dilation Cervic Effacement Cervic Station none 37 Uterine Contract ions 2cm 50% -3 Type Weight in lbs Pre/Post Dialysis Refused Weight 135.84064731568 BP Diastolic BP Location Tested BP Systolic BP Type 60 110 Fetus Heart Rate Present A 133 Fetus Movement A Yes Comments GBS collected Flowsheet Date 06/25/2021 Bolton Score Blood Edema Fundus Height Fundus Units Glucose Ketones Leukocytes Nitrite Labor Signs Protein Cervic Dilation Cervic Effacement Cervic Station none 36 cm none Uterine Contract ions neg 3cm 70% -2 Type Weight in lbs Pre/Post Dialysis Refused Weight 133.835932580048 BP Diastolic BP Location Tested BP Systolic BP Type 68 118 Fetus Heart Rate Present A 141 Present Fetus Movement A Yes Comments Complaints of irregular UC's intensifying over the last few days, SVE today same at in hospital. Discussed labor precautions. Flowsheet Date 2021 Bolton Score Blood Edema Fundus Height Fundus Units Glucose Ketones Leukocytes Nitrite Labor Signs Protein Cervic Dilation Cervic Effacement Cervic Station 37 none none neg 3cm 70% -3 Type Weight in lbs Pre/Post Dialysis Refused Weight 136.94501311613 BP Diastolic BP Location Tested BP Systolic BP Type 74 118 Fetus Heart Rate Present A 136 Fetus Movement A Yes Comments feeling abnormal movem ent NST eIOL scheduled at [facility] on 07/12 @ 0500 Flowsheet Date 07/04/2021 Bolton Score Blood Edema Fundus Height Fundus Units Glucose Ketones Leukocytes Nitrite Labor Signs Protein Cervic Dilation Cervic Effacement Cervic Station none none Cramping neg 3cm 70% - 2 Type Weight in lbs Pre/Post Dialysis Refused Weight 134.741455996461 BP Diastolic BP Location Tested BP Systolic BP Type 76 118 Fetus Heart Rate Present A 138 Fetus Movement A Decreased Comments Patient comes in today for c /o decreased FM, as well as cramping since last night. Cervix unchanged. Unable to perform NST d/t not having an NST machine in office. Limited FM on u/s, however, FHR 138. Sent to [facility]. Report given to Dr. Forrester Flowsheet Date 07/15/2021 Bolton Score Blood Edema Fundus Height Fundus Units Glucose Ketones Leukocytes Nitrite Labor Signs Protein Cervic Dilation Cervic Effacement Cervic Station Type Weight in lbs Pre/Post Dialysis Refused Weight 123.516619912744 BP Diastolic BP Location Tested BP Systolic BP Type 80 122 Fetus Heart Rate Present Fetus Movement Comments Menstrual History Last Menstrual Date Menses Monthly On Bcp Conception Prior Menses Frequency Hcg Plus Date Menarche Onset Age 0410/04/2020 Genetic Screening And Infection History Question Response Note Recent Travel History Outside of Country false Cystic Fibrosis false Any Other Genetic History false Wendy Disease false Other Infection History false Thalassemia (Uruguayan, Ethiopian, Mediterranean, Or Background): MCV < 80 false Patient Or Baby's Father Had A Child With Defects Not Listed Above false Live With Someone With TB Or Exposed To TB false Patient's Age Will Be 35 Years Or Older At Estim ated Date of Delivery false Recurrent Loss, Or A Stillbirth false Hemoglobinopathy Or Carrier false Patient Or Partner Has History Of Genital Herpes false Intellectual Disability/Autism false Maternal Metabolic Disorder (eg, Type 1 Diabetes , PKU) false History of Hepatitis false Randal-Sachs (eg, Denominational, Cajun, Serbian-Andrews) f alse History Of STD, Gonorrhea, Chlamydia, HPV, Syphi lis false Prior GBS-infected child false History of HIV false Personal or Family History o f Neural Tube Defect (Meningomyelocele, Spina Bifida, Or Anencephaly) false Hemophilia Or Other Blood Disorders false Mental Retardation/Autism false Holcomb's Chorea false If Yes, Was Person Tested For Fragile X? false Other Inherited Genetic Or Chromosomal Disorder false If Yes, Agent(s) And Strength/Dosage false Sickle Cell Disease Or Trait () false Personal or Family History of Congenital Heart D efect false Rash Or Viral Illness Since Last Menstrual Perio d false Muscular Dystrophy false Medications (including Suppl ements, Vitamins, Herbs, OTC Drugs), Illicit/Recreational Drugs, Alcohol false Other Structural Defect false Down Syndrome false Delivery Information Delivery Date Delivery Type Labor Anesthesia Weeks Gestation Incision Type Labor Labor Length Hrs Delivered By Post Complications Tubal Sterilization Discharge Date Comments [address] Forrester Discharge Information Feeding Method Contraceptive Method Maternal HG B and HCT Levels Bottle Ob Episode Information Episode Created Date Number of Fetuses Patient Bloodtype Patient rh Status Prepregnancy Weight lbs Domestic Partner Domestic Partner Phone Father Name Calender Operator Helper Status 06/10/20 21 1 CLOSED Fetus Data First Name Last Name Admitted to NICU Weight (g) Sex Living Outcome Pediatric Complications Fetus ID Race Codes Race Delivery Type , Spontane ous [id number] Orlin Calculation Initial Orlin Date Initial Exam Date Initial Exam Provider Initial Ultrasound Date Last Menstrual Period Date Ultra Sound Weeks Gestation 0 Eighteen To Twenty Week Orlin Update Ultra Sound Date Fundal Height At Umbil Quickening Date Ultra Sound Latest Weeks Gestation Final Orlin Confirmed By Final Orlin Confirmed Date Final Orlin Date Ultra Sound Latest Days Gestation 0 0 Menstrual History Last Menstrual Date Menses Monthly On Bcp Conception Prior Menses Frequency Hcg Plus Date Menarche Onset Age Delivery Information Delivery Date Delivery Type Labor Anesthesia Weeks Gestation Incision Type Labor Labor Length Hrs Delivered By Post Complications Tubal Sterilization Discharge Date Comments 1 Discharge Information Feeding Method Contraceptive Method Maternal HG B and HCT Levels Ob Episode Information Episode Created Date Number of Fetuses Patient Bloodtype Patient rh Status Prepregnancy Weight lbs Domestic Partner Domestic Partner Phone Father Name Calender Operator Helper Status 09/07/19 24 1 O Negative CLOSED Fetus Data First Name Last Name Admitted to NICU Weight (g) Sex Living Outcome Pediatric Complications Fetus ID Race Codes Race Delivery Type Eliecer 2948.34 8 M [id number] Problems Problem Notes O Neg - Will need RhogamVari jo-ann Non-ImmuneBilobed placentaFailed 1hr at 137. Passed 3hrPlatelets 135 with 28wk labs - Repeated 02/23/24 Problem Name Start Date End Date Resolution Snomed Code Not e Tachycardia [id number] Cardiolo gy referral placed Nausea [id number] Reglan ine ffective, Zofran rx'd Past history of premature labor 372110398 Hx of PTL with her son in 2018 starting at 20 weeksShe had no PTL issues with the following in 2021 Orlin Calculation Initial Orlin Date Initial Exam Date Initial Exam Provider Initial Ultrasound Date Last Menstrual Period Date Ultra Sound Weeks Gestation 04/15/2024 09/07/2023 0 Eighteen To Twenty Week Orlin Update Ultra Sound Date Fundal Height At Umbil Quickening Date Ultra Sound Latest Weeks Gestation Final Orlin Confirmed By Final Orlin Confirmed Date Final Orlin Date Ultra Sound Latest Days Gestation 0 0 Pre- Flowsheet Flowsheet Date 09/07/2023 Bolton Score Blood Edema Fundus Height Fundus Units Glucose Ketones Leukocytes Nitrite Labor Signs Protein Cervic Dilation Cervic Effacement Cervic Station none none neg Type Weight in lbs Pre/Post Dialysis Refused Weight 115.512933822567 BP Diastolic BP Location Tested BP Systolic BP Type 68 110 Fetus Heart Rate Present A 158 Fetus Movement Comments Flowsheet Date 09/30/2023 Bolton Score Blood Edema Fundus Height Fundus Units Glucose Ketones Leukocytes Nitrite Labor Signs Protein Cervic Dilation Cervic Effacement Cervic Station none none none neg Type Weight in lbs Pre/Post Dialysis Refused Weight 116.76595865939 BP Diastolic BP Location Tested BP Systolic BP Type 76 120 Fetus Heart Rate Present A 156 Fetus Movement Comments NOB labs todayDeclines [place] Discussed anti-constipation measures Flowsheet Date 10/26/2023 Bolton Score Blood Edema Fundus Height Fundus Units Glucose Ketones Leukocytes Nitrite Labor Signs Protein Cervic Dilation Cervic Effacement Cervic Station none none neg Type Weight in lbs Pre/Post Dialysis Refused With clothes 118.075549236124 BP Diastolic BP Location Tested BP Systolic BP Type 70 R arm 116 sitting Fetus Heart Rate Present A 140 Present Fetus Movement Comments heartburn Flowsheet Date 11/12/2023 Bolton Score Blood Edema Fundus Height Fundus Units Glucose Ketones Leukocytes Nitrite Labor Signs Protein Cervic Dilation Cervic Effacement Cervic Station none neg Type Weight in lbs Pre/Post Dialysis Refused Weight 121.680088670528 BP Diastolic BP Location Tested BP Systolic BP Type 62 128 Fetus Heart Rate Present A 152 Present Fetus Movement Comments Discussed anxiety as possibl e etiology for her sxShe had normal blood work, as well as E[facility] ago and also at her PCP 2 days agoBuspar rx'd for anxietyDiscussed hydration and proper diet Flowsheet Date 11/20/2023 Bolton Score Blood Edema Fundus Height Fundus Units Glucose Ketones Leukocytes Nitrite Labor Signs Protein Cervic Dilation Cervic Effacement Cervic Station none none none neg Type Weight in lbs Pre/Post Dialysis Refused Weight 125.515286001113 BP Diastolic BP Location Tested BP Systolic BP Type 80 122 Fetus Heart Rate Present A 134 Present Fetus Movement A Yes Comments Patient c/o urinary frequenc y/dysuriaShe has a hx of UTI'Yaneth most recent urine cx 09/30/23 resistant to MacrobidKeflex rx'd today Flowsheet Date 11/30/2023 Bolton Score Blood Edema Fundus Height Fundus Units Glucose Ketones Leukocytes Nitrite Labor Signs Protein Cervic Dilation Cervic Effacement Cervic Station none neg Type Weight in lbs Pre/Post Dialysis Refused With clothes 126.249511981956 BP Diastolic BP Location Tested BP Systolic BP Type 76 R arm 122 sitting Fetus Heart Rate Present A 150 Present Fetus Movement A Yes Comments anatomy scan today, incomple te. recheck next visit Flowsheet Date 12/11/2023 Bolton Score Blood Edema Fundus Height Fundus Units Glucose Ketones Leukocytes Nitrite Labor Signs Protein Cervic Dilation Cervic Effacement Cervic Station none none Backpain neg 0cm 40% - 4 Type Weight in lbs Pre/Post Dialysis Refused 130.562327863349 BP Diastolic BP Location Tested BP Systolic BP Type 80 122 Fetus Heart Rate Present A 142 Present Fetus Movement A Yes Comments Complains of lower back pain and abdominal tightening x 1 dayHx of PTL beginning at 20wks with her first pregnancyCervix closed. Urine dip negative. BV noted on wet mount. Flagyl rx'd. Discussed with Dr. Forrester. Due to hx of PTL patient sent to [facility] for further evaluation. Flowsheet Date 12/28/2023 Bolton Score Blood Edema Fundus Height Fundus Units Glucose Ketones Leukocytes Nitrite Labor Signs Protein Cervic Dilation Cervic Effacement Cervic Station Type Weight in lbs Pre/Post Dialysis Refused Weight 130.590387632055 BP Diastolic BP Location Tested BP Systolic BP Type 60 100 Fetus Heart Rate Present A 125 Fetus Movement A Yes Comments no ob complaints. anatomy sc an completedbilobed placenta. rto in 4 weeks for 3T labs Flowsheet Date 01/08/2024 Bolton Score Blood Edema Fundus Height Fundus Units Glucose Ketones Leukocytes Nitrite Labor Signs Protein Cervic Dilation Cervic Effacement Cervic Station none 26 cm none Uterine Contract ions neg 0cm 30% -4 Type Weight in lbs Pre/Post Dialysis Refused Weight 135.026967019484 BP Diastolic BP Location Tested BP Systolic BP Type 76 118 Fetus Heart Rate Present A 133 Present Fetus Movement A Yes Comments Complaints of melchor nelson since yesterday. She is experiencing urinary hesitancy. She denies dysuria/frequency. She has a hx of frequent UTI's She is also feeling fatigued. Cervix cl/th/h. PTL precautions discussed. Encouraged maternity belt for her pelvic pressure Flowsheet Date 01/26/2024 Bolton Score Blood Edema Fundus Height Fundus Units Glucose Ketones Leukocytes Nitrite Labor Signs Protein Cervic Dilation Cervic Effacement Cervic Station none 27 cm none none neg Type Weight in lbs Pre/Post Dialysis Refused 140.488018912531 BP Diastolic BP Location Tested BP Systolic BP Type 78 120 Fetus Heart Rate Present A 169 Present Fetus Movement A Yes Comments 28wk labs todayOrder given t o have rhogam to have done at [facility] d/t no [place] testing Maternity belt working well for her generalized pelvic pain Flowsheet Date 02/09/2024 Bolton Score Blood Edema Fundus Height Fundus Units Glucose Ketones Leukocytes Nitrite Labor Signs Protein Cervic Dilation Cervic Effacement Cervic Station 28 cm none neg Type Weight in lbs Pre/Post Dialysis Refused With clothes 140.227932468709 BP Diastolic BP Location Tested BP Systolic BP Type 80 120 Fetus Heart Rate Present A 142 Present Fetus Movement A Yes Comments Failed 1hr. Passed 3hrGrowth scan next visitTaking Pepcid for heartburn Flowsheet Date 02/23/2024 Bolton Score Blood Edema Fundus Height Fundus Units Glucose Ketones Leukocytes Nitrite Labor Signs Protein Cervic Dilation Cervic Effacement Cervic Station none none Cramping neg 0cm 50% - 4 Type Weight in lbs Pre/Post Dialysis Refused Weight 142.799399373835 BP Diastolic BP Location Tested BP Systolic BP Type 80 122 Fetus Heart Rate Present A 135 Present Fetus Movement A Yes Comments Post ER follow upReceived Be tamethasone x 2 injectionsCervical lenth per patient was 3.4cmCBC today for c/o intermittent fever and platelets of 135 with one hourCardiology referral placed for c/o TachycardiaUrine cx sent for c/o urinary frequency and hx of UTI'sNST reactive with irritability noted Discussed anti-constipation measures in detail with patient Flowsheet Date 02/24/2024 Bolton Score Blood Edema Fundus Height Fundus Units Glucose Ketones Leukocytes Nitrite Labor Signs Protein Cervic Dilation Cervic Effacement Cervic Station none none none neg Type Weight in lbs Pre/Post Dialysis Refused 145.1727750361 BP Diastolic BP Location Tested BP Systolic BP Type 74 120 Fetus Heart Rate Present A 138 Present Fetus Movement A Yes Comments Growth scan today 40.9%tileA FI 19.42 Flowsheet Date 03/09/2024 Bolton Score Blood Edema Fundus Height Fundus Units Glucose Ketones Leukocytes Nitrite Labor Signs Protein Cervic Dilation Cervic Effacement Cervic Station none neg Type Weight in lbs Pre/Post Dialysis Refused 243.180436062565 BP Diastolic BP Location Tested BP Systolic BP Type 78 132 Fetus Heart Rate Present Fetus Movement A Yes Comments Flowsheet Date 03/22/2024 Bolton Score Blood Edema Fundus Height Fundus Units Glucose Ketones Leukocytes Nitrite Labor Signs Protein Cervic Dilation Cervic Effacement Cervic Station none 36 cm none Cramping neg Type Weight in lbs Pre/Post Dialysis Refused 145.1499340124 BP Diastolic BP Location Tested BP Systolic BP Type 80 122 Fetus Heart Rate Present A 130 Fetus Movement A Yes Comments reports episodes of nausea a nd vomiting with midepigastric pain. Will set up u/s for gallbladder. GBS done today Flowsheet Date 03/28/2024 Bolton Score Blood Edema Fundus Height Fundus Units Glucose Ketones Leukocytes Nitrite Labor Signs Protein Cervic Dilation Cervic Effacement Cervic Station none trace 3cm 50% -1 Type Weight in lbs Pre/Post Dialysis Refused Stated 146.637818777879 BP Diastolic BP Location Tested BP Systolic BP Type 80 R arm 126 sitting Fetus Heart Rate Present A 130 Present Fetus Movement A Decreased Comments pt reports having freq ctx t his am, baby not moving as much. no bleeding, +mucus. Went [facility] and was eval in [facility] - had negative ROM + Flowsheet Date 03/29/2024 Bolton Score Blood Edema Fundus Height Fundus Units Glucose Ketones Leukocytes Nitrite Labor Signs Protein Cervic Dilation Cervic Effacement Cervic Station none 3cm 80% -1 Type Weight in lbs Pre/Post Dialysis Refused Weight 146.553223938631 BP Diastolic BP Location Tested BP Systolic BP Type 80 132 Fetus Heart Rate Present A 148 Fetus Movement A Yes Comments Complaints of contractions e very 5-8 minutesPresented to OB triage last night and was sent homeCervix today 2-3cm/80%/-1. Unchanged from ER visitLabor precautions discussed Flowsheet Date 04/01/2024 Bolton Score Blood Edema Fundus Height Fundus Units Glucose Ketones Leukocytes Nitrite Labor Signs Protein Cervic Dilation Cervic Effacement Cervic Station none none trace 3cm 80% -1 Type Weight in lbs Pre/Post Dialysis Refused 148.108900715310 BP Diastolic BP Location Tested BP Systolic BP Type 80 140 Fetus Heart Rate Present A 146 Present Fetus Movement A Yes Comments Discharged from hospital las t night due to no cervical changeFrustrated with [facility] todayNST reactiveLabor precautions discussed Flowsheet Date 04/04/2024 Bolton Score Blood Edema Fundus Height Fundus Units Glucose Ketones Leukocytes Nitrite Labor Signs Protein Cervic Dilation Cervic Effacement Cervic Station none 36 cm none 4cm 50% -1 Type Weight in lbs Pre/Post Dialysis Refused With clothes 148.467762020437 BP Diastolic BP Location Tested BP Systolic BP Type 80 112 Fetus Heart Rate Present A 140 Fetus Movement A Decreased Comments continues to have painful co ntractions intermittently. Labor precautions. BPP 01/27 Flowsheet Date 04/28/2024 Bolton Score Blood Edema Fundus Height Fundus Units Glucose Ketones Leukocytes Nitrite Labor Signs Protein Cervic Dilation Cervic Effacement Cervic Station Type Weight in lbs Pre/Post Dialysis Refused Weight 135.349660165653 BP Diastolic BP Location Tested BP Systolic BP Type 80 118 Fetus Heart Rate Present Fetus Movement Comments Menstrual History Last Menstrual Date Menses Monthly On Bcp Conception Prior Menses Frequency Hcg Plus Date Menarche Onset Age Delivery Information Delivery Date Delivery Type Labor Anesthesia Weeks Gestation Incision Type Labor Labor Length Hrs Delivered By Post Complications Tubal Sterilization Discharge Date Comments 4 [facility] 38.6 Melina Barrera MD Discharge Information Feeding Method Contraceptive Method Maternal HG B and HCT Levels Breast
--- OUTSIDE RECORDS SUMMARY | 2024-08-02 21:02 | XMS_ITS | Clinical Summary ---
Author Organization [facility] Address [address] [place] [address] Care Team Providers Care [employer] Supervisor Name Role Phone Matty Pugh BRONZE CHASER-CUSTOMER SALES SERVICE MANAGER Unavailable [phone] Calvin Haro MD Primary Care Provider [phone] Matty Pugh BRONZE CHASER-CUSTOMER SALES SERVICE MANAGER Unavailable [phone] Source Comments [facility],non-owned Affiliates and Associated Physician Practices is amultiple site organization consisting of ambulatory clinics and hospital sitesin [place], [place], [place] and [place]. This disclosure is being madepursuant to the Care Everywhere program and may not contain all information available regarding this patient. Last updated 18.[facility] Allergies Active Allergy Reactions Criticality Noted Date [...] aura and without status migrainosus, not intractable Sweeny 2 (two) sprays into each nostril once daily 16 g 2 06/29/2023 Active Vit-Fe Fumarate-FA ( VITAMIN PO) Take by mouth once daily Active hydrocortisone, rectal, (Anusol-HC) 2.5 % creamIndications:Hemor rhoids, unspecified hemorrhoid type Insert into the rectum at bedtime 28 g 11/10/2023 Active sodium chloride ([place]; Baby [place]) 0.65 % nasal sprayIndications:Seaso nal allergic rhinitis due to pollen S[place]y 1 (one) spray into each nostril as needed for Dry Nose 30 mL 1 11/10/2023 Active Active Problems Patient Care Coordination No te Formatting of this note migh t be different from the original. [facility] Problem Noted Date Diagnosed Date [...] IPV 07/09/1999,1998,1998 TDAP (7yrs+) 05/07/2021,05/05/2019 VARICELLA 03/02/2002 Family History Medical History Relation Name Comments Asthma Brother 1 Seizures Brother 3 Hypertension Father COPD - Chronic Obstructive Pulmonary Disease Maternal Grandfather CAD (Coronary Artery Disease) Maternal Grandmother Cancer - Pancreatic Mother CAD (Coronary Artery Disease) Paternal Grandfather Thyroid Disease Sister Relation Name Status Comments Brother 1 Alive Brother 2 Brother 3 Alive Brother 4 Alive Father Alive Maternal Grandfather Alive Maternal Grandmother Alive Mother Alive Paternal Grandfather Alive Paternal Grandmother Alive Sister Alive Social History Tobacco Use [...] 11/10/2023 1:04 PM CDT Plan of Treatment Health Maintenance Due Date Last Done Comments HPV VACCINE (1 - 3-dose series) 2013 OB-ONE HOUR GLUCOSE 01/08/2024 OB-TDAP CURRENT 01/15/2024 05/07/2021, OB-RHOGAM INJECTION 01/22/2024 COVID-19 VACCINE ( season) 2024 INFLUENZA VACCINE (#1) 2024 05/06/2019 OB-GROUP B STREP SCREEN 03/11/2024 DEPRESSION SCREENING 06/22/2024 06/29/2023, 02/04/2023, 01/23/2022 PAP SMEAR 09/29/2026 09/30/2023, 0509/2021 (Done Outside Per Patient), 02/24/2021, Additional history exists DTAP/TDAP/TD VACCINES (7 - Td or Tdap) 05/07/2031 05/07/2021, 05/05/2019, 12/26/1999, Additional history exists ZOSTER VACCINE (1 of 2) 2048 Respiratory Syncytial Virus (RSV) Vaccine Pt: or over 60 yrs (1 - 1-dose 75+ series) 2073 HEPATITIS B VACCINE Completed 05/28/1999, 1998, 1998 HIB VACCINE Completed 12/26/1999, 12/1998, 1998, Additional history exists MENINGOCOCCAL VACCINE Aged Out 01/14/2011 No urel sarah eligible based on patient's age to complete this topic HEPATITIS C SCREENING Discontinued HIV SCREENING Discontinued MENINGOCOCCAL (Group B) VACCINE Aged Out No longer eligible based on patient's age to complete this topic PNEUMOCOCCAL VACCINE Aged Out No long er eligible based on patient's age to complete this topic Care Teams [employer] Supervisor Relationship Specialty Start Date End Date Calvin Haro MD [address] [phone] PCP - General Family Medicine 11/09/23 Matty Pugh APRN-CUSTOMER SALES SERVICE MANAGER [address] [phone] Nurse Practitioner Family 01/23/22 Matty Pugh APRN-CUSTOMER SALES SERVICE MANAGER [address] [phone] Nurse Practitioner Nurse Practitioner Family 11/09/23
--- OUTSIDE RECORDS SUMMARY | 2024-08-02 21:02 | XMS_ITS | Data Portability ---
Author Organization [place] - [facility], [facility] Address [address] [place] [phone] Care Team Providers Care Hot Blaster Name Role Phone ZAIDA ZAMBRANO Primary Care Provider [phone] Assessment No assessment recorded. Plan of Treatment Reminders Order Date Submit Date Provider Last Modified By Organization Details Last Modified Time Details Appointments None recorded. Lab rapid strep group A, throat 2023 024 [email or web address] [facility], [address] [place] [address], [address], 4 10:06:15 rapid strep group A, throat 2023 024 [email or web address] 8 [facility], [address] [place] [address], [address], 4 09:52:31 rapid SARS CoV + SARS CoV 2 Ag, QL IA, respiratory specimen 2023 024 [email or web address] 8 [facility], [address] [place] [address], [address], 4 09:52:31 rapid flu (A+B) 2023 024 [email or web address] 8 [facility], [address] [place] [address], [address], 4 09:52:31 rapid flu (A+B) 2024 025 [email or web address] [facility], [address] [place] [address], [address], 11:25:56 rapid strep group A, throat 2024 025 [email or web address] [facility], [address] [place] [address], [address], 11:25:56 Referral None recorded. Procedures None recorded. Surgeries None recorded. Imaging None recorded. Medication Orders azithromyci n 250 mg tablet [address] [facility] [address] [facility], [address] [place], [address], 09:37:30 doxycycline hyclate 100 mg capsule [address] [facility] [facility], [address] [place], [address], 11:03:25 cefdinir 300 mg capsule 2024 025 [id number], [address], [place], [phone], 11:33:59 Patient TargetsNo targets recorded. Patient Instructions Encounter Date Encounter Id Patient Instructions Last Modified By Organization Details Last Modified Time 06/25/2024 [id number] Acute Sinusitis: Care Instructions [email or web address] Not available 06/25/2024 11:33:55 Reason for Referral None Reported. Results Created Date Observation Date Name Description Value Unit Range Abnormal Flag Note LastModifiedBy Organization Detail LastModifiedTime 08/11/19 24 08/11/2023 rapid strep group A, throa t STREP A positi ve Not Available [address], [address], 08/11/2023 09:51:48 08/11/19 24 08/11/2023 rapid strep group A, throa t Strep positi ve Not Available [address], [address], 08/11/2023 09:51:48 05/31/20 24 05/31/2024 rapid flu (A+B) influenza A negati ve negati ve normal Not Available [address], [address], 05/31/2024 09:45:43 05/31/20 24 05/31/2024 rapid flu (A+B) influenza B negati ve negati ve normal Not Available [address], [address], 05/31/2024 09:45:43 05/31/20 24 05/31/2024 rapid flu (A+B) control accept able accept able Not Available [address], [address], 05/31/2024 09:45:43 05/31/20 24 05/31/2024 rapid SARS CoV + SARS CoV 2 Ag, QL IA, respi rator y speci men id now covid 19 negati ve negati ve Not Available [address], [address], 05/31/2024 09:45:41 05/31/20 24 05/31/2024 rapid strep group A, throa t STREP A negati ve Not Available [address], [address], 05/31/2024 09:39:53 05/31/20 24 05/31/2024 rapid strep group A, throa t Strep negati ve Not Available [address], [address], 05/31/2024 09:39:53 06/25/19 25 06/25/2024 rapid strep group A, throa t STREP A negati ve Not Available [address], [address], 06/25/2024 11:05:55 06/25/19 25 06/25/2024 rapid strep group A, throa t Strep negati ve Not Available [address], [address], 06/25/2024 11:05:55 06/25/19 25 06/25/2024 rapid flu (A+B) influenza A negati ve negati ve normal Not Available [address], [address], 06/25/2024 11:05:33 06/25/19 25 06/25/2024 rapid flu (A+B) influenza B negati ve negati ve normal Not Available [address], [address], 06/25/2024 11:05:33 06/25/19 25 06/25/2024 rapid flu (A+B) control accept able Not Available [address], [address], 06/25/2024 11:05:33 Result Notes None recorded. Problems Name Problem SNOMED Code Status Onset Date Resolution Date Notes Provider Name and Address Organization Details Recorded Time Streptococcal sore throat 26908613 Active 2023 Gissell guardado [facility] 4 09:51:50 Pain in throat 349171356 Active 2023 Gissell guardado [facility] 4 09:45:32 Acute sinusitis 08294335 Active 2023 Latoya Glez NP [address] [place] [address], [address], [facility] 4 09:48:36 Sore throat 046672837 Active 2024 Gissell guardado [facility] 5 11:05:44 Problem Notes None recorded. Medical Equipment None Reported. Allergies Allergen ID Allergen Name Allergen Category Reaction Reaction Severity Criticality Documentation Date Start Date Code Code System Note Provider Name and Address Organization Details Recorded Time 455939 Substance with sulfonami de structure and antibacte rial mechanism of action (substanc e) medicatio n Not available Not available Not available 06/30/2022 89580 8003 SNOMED Not Available [facility] 3 00:16:37 859823 Product containin g penicilli n and antibioti c (product) medicatio n Not available Not available Not available 06/30/2022 33151 05 SNOMED Not Available [facility] 3 00:16:37 281442 ampicilli n medicatio n Not available Not available Not available 06/30/2022 733 RxNorm Not Available [facility] 3 00:16:37 934007 clindamyc in Not available hives Not available Not available 06/25/2024 2582 RxNorm Gissell guardado [facility] 5 11:03:02 Medications Name Sig Start Date Stop Date Status Note LastModified by Organization Details LastModified Time cyclobenzap rine 10 mg tablet TAKE 1 TABLET BY MOUTH EVERY 8 HOURS NEEDED 06/25 completed Not Available Not Available Not Available prednisone 10 mg tablet TAKE 3 TABLETS DAILY FOR 4 DAYS, THEN 2 TABLETS DAILY FOR 4 DAYS, THEN 1 TABLET DAILY FOR 4 DAYS 08/11 completed Not Available Not Available Not Available doxycycline hyclate 100 mg capsule Take 1 capsule twice a day by oral route with meal(s) for 10 days. 06/25 completed Not Available Not Available Not Available clindamycin HCl 300 mg capsule TAKE 1 CAPSULE BY MOUTH TWICE DAILY 06/25 completed Not Available Not Available Not Available cetirizine 10 mg tablet 08/11 completed Not Available Not Available Not Available azithromyci n 250 mg tablet TAKE 2 TABLETS BY MOUTH ON DAY 1, AND THEN TAKE 1 TABLET BY MOUTH ONCE A DAY ON DAY 2 THROUGH DAY 5 05/31 completed Not Available Not Available Not Available ibuprofen 800 mg tablet active Not Available Not Available Not Available fluconazole 150 mg tablet TAKE 1 TABLET BY MOUTH 1 TIME FOR 1 DOSE 08/11 completed Not Available Not Available Not Available citalopram 10 mg tablet TAKE 1 TABLET BY MOUTH EVERY DAY 06/25 completed Not Available Not Available Not Available hydrocodone 5 mg-acetamin ophen 325 mg tablet TAKE 1 TO 2 TABLETS BY MOUTH EVERY 6 HOURS NEEDED FOR ACUTE PAIN 08/11 completed Not Available Not Available Not Available sucralfate 1 gram tablet TAKE 1 TABLET BY MOUTH NEEDED 1 HOUR PRIOR TO MEALS 06/25 completed Not Available Not Available Not Available famotidine 40 mg tablet 08/11 completed Not Available Not Available Not Available metronidazo le 500 mg tablet TAKE 1 TABLET BY MOUTH EVERY 12 HOURS WITH MEALS FOR 7 DAYS 05/31 completed Not Available Not Available Not Available ciprofloxac in 500 mg tablet TAKE 1 TABLET BY MOUTH EVERY 12 HOURS FOR 10 DAYS 06/25 completed Not Available Not Available Not Available omeprazole 40 mg capsule,del ayed release 08/11 completed Not Available Not Available Not Available tramadol 50 mg tablet TAKE 1 TO 2 TABLETS BY MOUTH EVERY 6 HOURS NEEDED FOR ACUTE PAIN OR PAIN 08/11 completed Not Available Not Available Not Available acetaminoph en 500 mg tablet TAKE 2 TABLET BY MOUTH EVERY 6 HOURS NEEDED active Not Available Not Available No t Available triamcinolo ne acetonide 0.1 % topical cream APPLY CREAM EXTERNALL Y TO AFFECTED AREA TWICE DAILY 08/11 completed Not Available Not Available Not Available butalbital- acetaminoph en-caffeine 50 mg-325 mg-40 mg tablet TAKE 1 TABLET BY MOUTH EVERY 6 HOURS NEEDED FOR HEADACHE 08/11 completed Not Available Not Available Not Available ondansetron 8 mg disintegrat ing tablet DISSOLVE 1 TABLET ON THE TONGUE TWICE DAILY 06/25 completed Not Available Not Available Not Available dexamethaso ne 0.5 mg/5 mL oral elixir TAKE 5 ML BY MOUTH 4 TIMES DAILY SWISH, GARGLE, AND SWALLOW FOR ONE WEEK 08/11 completed Not Available Not Available Not Available hydrocortis one 2.5 % topical cream with perineal applicator INSERT RECTALLY TO THE AFFECTED AREA AT BEDTIME 05/31 completed Not Available Not Available Not Available Deep Sea Nasal 0.65 % spray aerosol USE 1 SPRAY INTO EACH NOSTRIL NEEDED FOR DRY NOSE 05/31 completed Not Available Not Available Not Available famotidine 20 mg tablet TAKE 2 TABLETS BY MOUTH TWICE DAILY 06/25 completed Not Available Not Available Not Available phenazopyri dine 100 mg tablet TAKE 1 TABLET BY MOUTH THREE TIMES DAILY NEEDED FOR URINARY DISCOMFOR T 05/31 completed Not Available Not Available Not Available cephalexin 500 mg capsule TAKE 1 CAPSULE BY MOUTH TWICE DAILY FOR 10 DAYS 05/31 completed Not Available Not Available Not Available nystatin 100,000 unit/gram topical cream 08/11 completed Not Available Not Available Not Available nystatin-tr iamcinolone 100,000 unit/g-0.1 % topical cream APPLY TOPICALLY TO THE AFFECTED AREA TWICE DAILY IN THE MORNING AND IN THE EVENING 08/11 completed Not Available Not Available Not Available fluoxetine 10 mg capsule 08/11 completed Not Available Not Available Not Available hydroxyzine HCl 25 mg tablet TAKE 1 TABLET BY MOUTH THREE TIMES DAILY NEEDED FOR ITCHING 08/11 completed Not Available Not Available Not Available ergocalcife rol (vitamin D2) 1,250 mcg (50,000 unit) capsule TAKE 1 CAPSULE BY MOUTH EVERY 7 DAYS 05/31 completed Not Available Not Available Not Available ibuprofen 600 mg tablet 08/11 completed Not Available Not Available Not Available methylpredn isolone 4 mg tablets in a dose pack 08/11 completed Not Available Not Available Not Available ondansetron 4 mg disintegrat ing tablet DISSOLVE 1 TABLET ON THE TONGUE TWICE DAILY 05/31 completed Not Available Not Available Not Available cefdinir 300 mg capsule Take 1 capsule every 12 hours by oral route with meals for 7 days. active Not Available Not Available No t Available fluticasone propionate 50 mcg/actuati on nasal spray,suspe nsion SHAKE LIQUID AND USE 2 SPRAYS IN EACH NOSTRIL EVERY DAY 05/31 completed Not Available Not Available Not Available doxycycline hyclate 100 mg tablet TAKE 1 TABLET BY MOUTH TWICE DAILY FOR 7 DAYS 08/11 completed Not Available Not Available Not Available naproxen 500 mg tablet TAKE 1 TABLET BY MOUTH TWICE DAILY WITH MEALS 08/11 completed Not Available Not Available Not Available metoclopram rhonda 10 mg tablet TAKE 1 TABLET BY MOUTH FOUR TIMES DAILY 05/31 completed Not Available Not Available Not Available buspirone 15 mg tablet TAKE 1 TABLET BY MOUTH TWICE DAILY 05/31 completed Not Available Not Available Not Available hydroxyzine pamoate 25 mg capsule 06/25 completed Not Available Not Available Not Available nitrofurant oin monohydrate /macrocryst als 100 mg capsule TAKE 1 CAPSULE BY MOUTH EVERY 12 HOURS FOR 7 DAYS 08/11 completed Not Available Not Available Not Available Multi Vitamin 08/11 completed Not Available Not Available Not Available Slynd 4 mg (28) tablet TAKE 1 TABLET BY MOUTH EVERY DAY 08/11 completed Not Available Not Available Not Available Vitals Date Recorded Body mass index (BMI) Body height Oxygen saturation Oxygen saturation in Arterial blood by Pulse oximetry Heart rate Respiratory rate Body temperature Body weight Systolic blood pressure Diastolic blood pressure Provider Name and Address Organization Details Last Updated DateTime 3 22.3 kg/m2 157.48 cm 98 % 98 % 67 /min 18 /min 98.8 [degF] 61431.2 7 g 114 mm[Hg] 70 mm[Hg] Not Available [facility] 3 00:16:05 Date Recorded Body weight Body mass index (BMI) Body height Body temperature Heart rate Oxygen saturation Oxygen saturation in Arterial blood by Pulse oximetry Respiratory rate Pain severity - 0-10 verbal numeric rating [Score] - Reported Systolic blood pressure Diastolic blood pressure Provider Name and Address Organization Details Last Updated DateTime 4 6350.29 g 2.6 kg/m2 154.94 cm 98.7 [degF] 106 /min 99 % 99 % 16 /min 7 124 mm[Hg] 64 mm[Hg] Gissell Carrilol [facility] 4 09:44:00 Date Recorded Body height Body mass index (BMI) Body weight Body temperature Respiratory rate Pain severity - 0-10 verbal numeric rating [Score] - Reported Heart rate Oxygen saturation Oxygen saturation in Arterial blood by Pulse oximetry Systolic blood pressure Diastolic blood pressure Provider Name and Address Organization Details Last Updated DateTime 4 154.94 cm 25.4 kg/m2 94616.1 8 g 97.6 [degF] 16 /min 6 72 /min 99 % 99 % 118 mm[Hg] 66 mm[Hg] Gissell Carrillo [facility] 4 09:36:04 Date Recorded Body height Body mass index (BMI) Body weight Body temperature Heart rate Oxygen saturation Oxygen saturation in Arterial blood by Pulse oximetry Respiratory rate Pain severity - 0-10 verbal numeric rating [Score] - Reported Systolic blood pressure Diastolic blood pressure Provider Name and Address Organization Details Last Updated DateTime 5 154.94 cm 25.3 kg/m2 09633.3 8 g 98.3 [degF] 76 /min 99 % 99 % 16 /min 6 116 mm[Hg] 70 mm[Hg] Gissell Carrillo [facility] 5 11:01:53 Social History Question Answer Notes LastModified by Organizat ion Details LastModified Time Tobacco Smoking Status Never Smoker Not Available [facility] 06/30/2022 00:15:38 What Is Your Level Of Alcohol Consumption? None Information not available 08/11/2023 If You Are , What Was Your Level Of Alcohol Consumption Prior To ? None [email or web address] Information not available 03/11/2024 What Is Your Level Of Caffeine Consumption? Occasional Information not available 08/11/2023 In The 14 Days Before Symptom Onset, Have You Had Close Contact With A Laboratory-confirm ed COVID-19 While That Case Was Ill? No [id number] Information not available 06/30/2022 In The 14 Days Before Symptom Onset, Have You Had Close Contact With A Person Who Is Under Investigation For COVID-19 While That Person Was Ill? No [id number] Information not available 06/30/2022 Do You Feel Hopeless Or Helpless No Information not available 08/11/2023 Have You Had Thoughts Of Suicide? No Information not available 08/11/2023 Are You Having Any Suicidal Thoughts Now? No Information not available 08/11/2023 Have You Previously Attempted Suicide? No Information n ot available 08/11/2023 Do You Have A Plan To Hurt Yourself Or Others? No Information not available 08/11/2023 Has A Family Member Or Someone Close To You Committed Suicide Or Have You Been A Witness To Suicide? No Information not available 08/11/2023 Have You Fallen In The Last 3 Months? No Information n ot available 08/11/2023 What Was The Date Of Your Most Recent Tobacco Screening? 06/25/2024 Information not available 06/25/2024 Do You Use Any Illicit Or Recreational Drugs? No [email or web address] Information not available 03/11/2024 Has Tobacco Cessation Counseling Been Provided? No [email or web address] Information not available 03/11/2024 Have You Recently Traveled Abroad? No [id number] Information not available 06/30/2022 Do You Or Have You Ever Used Any Other Forms Of Tobacco Or Nicotine? No [id number] Information not available 06/30/2022 Sex: Unknown Functional Status None recorded. Mental Status None recorded. Family History Nothing Reported. Medical History No medical history recorded. Gynecological History Statement/Question Response Date of LMP 06/13/2024 Obstetrics History GPAL:G 0 P 0 0 0 0 Past Encounters Encounter ID Performer Location Encounter Start Date Encounter Closed Date Diagnosis/Indication Diagnosis SNOMED-CT Code Diagnosis ICD10 Code Diagnosis Note [id number] [address] [address] 08/19/2021 00:00:00 08/19/2021 11:12:09 [id number] Dayami Camara [employer]OC[employer] [address] [address] 08/11/2023 09:31:53 08/11/2023 10:07:46 Streptococcal sore throat 48873133 J02.0 Pt attempting to get and 1 day late on periodWill send in az[facility]ulane[facility], pt going to call OB before starting as data cannot r/o risk of harm, she will notify office if OB would like her to be on something elseIncrea se PO fluidsYou are contagious for at least 24 hours after starting antibiotic s or after your fever is goneUse simple analgesics (ibuprofen or acetaminop hen per age), salt water gargles or lozenges.S ymptomatic family members should seek medical attention. Replace your old toothbrush after you have been on the antibiotic s for 24-48 daysDo not drink or eat after other peopleRTC if no improvemen tER precaution s advised [id number] Latoya Glez NP [address] [address] 05/31/2024 09:28:15 05/31/2024 11:27:36 Acute sinusitis 38641369 J01.90 -Strep, COVID-19, influenza a/b negative.- S/s & exam consistent w/ sinusitis today. Will treat d/t exam & symptom length. Vital signs WNL w/ no findings suggestive of more serious etiology at this time.-Pt to begin antibiotic as prescribed . Medication education provided. To help avoid GI complicati ons pt recommende d to use yogurt or probiotic w/ antibiotic course and 1-2 weeks following. Discussed use of nasal saline rinses and OTC flonase.-P t to rest, drink plenty of fluids, and may take OTC acetaminop hen/ibupro fen as needed for fever/pain if not contraindi cated. Discussed other OTC symptomati c treatments .-Pt to follow-up w/ PCP or return to clinic if symptoms fail to improve or worsen. Red flag symptoms and when to seek emergency care discussed. -Pt verbalizes understand ing and is agreeable to plan of care. [id number] ARMANDO Oscar [address] [address] 06/25/2024 10:01:25 06/26/2024 23:25:40 Sore throat 448924092 J02.9 Pt advised that her flu and strep are negative. Pt advised to gargle with warm salt water 2-3 times a day and suck on lozenges to keep throat moist. Pt advised to stay well hydrated and avoid eating sharp foods or drinking liquids that irritate the throat. Pt to use nasal saline spray 3-4 times a day and do warm moist compresses to face for s/s relief. Pt to take medication as prescribed and f/u if s/s increase or new s/s develop. Acute sinusitis 38607812 J01.90 Pt advised to gargle with warm salt water 2-3 times a day and suck on lozenges to keep throat moist. Pt advised to stay well hydrated and avoid eating sharp foods or drinking liquids that irritate the throat. Pt to use nasal saline spray 3-4 times a day and do warm moist compresses to face for s/s relief. Pt to take medication cefdinir 300 mg take 1 capsule twice a day for 7 days as prescribed and f/u if s/s increase or new s/s develop. Pt states that she was unable to keep the doxycyclin e down that she was given during her last visit. Pt states she was then seen by a different urgent care ad was given clindamyci n which gave her a rash. Pt advised that there is a small potential for a cross reaction to the cefdinir due to her penicillin allergy. Pt to keep benadryl on hand and take it if she develops a rash. Pt to discontinu e the medication if a rash, hives, itching, shortness or breath, dyspnea or other s/s of reaction develop. Health Concerns Section Related Observation LastModified by Organization Detai ls LastModified Time None Recorded Concern Status LastModified by Organization Details LastModified Time None Recorded Advance Directives Directive None Recorded Payers Encounter Date Sequence Insurance Name Policy Number Policy Brennan Covered Member ID Brennan Member ID Guarantor Name 08/11/2023 1 [facility] (MEDICAID REPLACEMENT - [facility] [id number] Elly Clarke [id number] Elly R Clarke 05/31/2024 1 [place] [id number] Elly R Clarke [id number] Elly R Clarke 05/31/2024 2 [facility] (MEDICAID REPLACEMENT - [facility] [id number] Elly R Clarke [id number] Elly R Clarke 06/25/2024 1 [place] [id number] Elly R Clarke [id number] Elly R Clarke 06/25/2024 2 [facility] (MEDICAID REPLACEMENT - [facility] [id number] Elly R Clarke [id number] Elly R Clarke Notes Date Note Type Note Provider Name and Address Organization Details Recorded Time 08/11/2023 text/html 23 y/o female presents to clinic today with a sore throat, cough and congestion.body aches and AREVALO Kids have strep throat. possibly ONSET: last nightOTC: tylenol Dayami Camara NP [address] [place], [address], [facility] 08/11/2023 10:06:10 05/31/2024 text/html 23 y/o female presents in clinic c/o sore throat, sinus congestion, sinus pressure that began about 3 weeks ago. Pt has tried OTC ibuprofen, sudafed, and tylenol w/ some relief. Pt reports appropriate fluid intake and is urinating adequately. Latoya Glez NP [address] [place], [address], [facility] 05/31/2024 09:56:33 06/25/2024 text/html 23 y/o female presents to clinic today for congestion and sore throat. Son had FLU A will arteagaeONSET: 05/31/24 worse over last 2 weeksOTC: motrin, sudafed, benadryl ARMANDO Oscar [address] [place], [address], [facility] 06/25/2024 11:51:40 OBGyn Episode No OBEpisode recorded.
[2024-08-02] MEDS: KETOROLAC (*BKC) 60 MG/2 ML VIAL IM (21:05)
[2024-08-02] MEDS: predniSONE 20 MG TABLET 60 MG PO (21:05)
[2024-08-02] MEDS: IPRATROPIUM 0.5 MG/ALBUTEROL SULFATE 2.5 MG AMPUL.NEB 3 ML INHALATION (21:47)
[2024-08-02 21:48] VITALS: PULSE 84; RESP 16
[2024-08-02 21:57] VITALS: PULSE 84; RESP 16
[2024-08-02 22:30] VITALS: BP 120/72; PULSE 85; RESP 16; O2SAT 99
== END 2024-08-02 22:36 | disposition home or self-care (01) ==
PROVIDERS: Emergency Provider Registered Nurse
DX: J18.9 Pneumonia, unspecified organism (principal); J06.9 Acute upper respiratory infection, unspecified
CPT/HCPCS: 71046; 94640; 96372; 99283; J1885; J7512